=== PATIENT | male | born 1975 | race Caucasian/White ===

== ENCOUNTER 2020-06-13 16:12 | Emergency (ER) | payer OTHER, SELFPAY ==
[2020-06-13 16:15] VITALS: BP 159/103; PULSE 89; RESP 20; TEMP 36.9; O2SAT 97
--- NOTE | 2020-06-13 16:19 | DI.US.S_ITS ---
PROCEDURE: US SCROTUM INDICATIONS: rt testicular pain/tenderness TECHNIQUE: Real-time scanning was performed of the scrotum and testicles, with image documentation. Color and pulse Doppler interrogation was performed of both testicles. COMPARISON: None. FINDINGS: Right: Testicle is normal in size at 4.2 x 1.8 x 2.4 cm, and homogenous in echotexture. Epididymis is normal in overall size and morphology. No hydrocele or varicoceles. Overlying scrotal skin is normal in thickness. Left: Testicle is normal in size at 4.4 x 1.8 x 2.8 cm, and homogeneous in echotexture. Epididymis is normal in overall size and morphology. No hydrocele or varicoceles. Overlying scrotal skin is normal in thickness. Doppler: Color and pulse Doppler demonstrate normal and symmetric arterial flow in both testicles. IMPRESSION: Normal scrotal ultrasound. Dictated by: Angela Perkins M.D. on 06/13/2020 at 17:31 Approved by: Angela Perkins M.D. on 06/13/2020 at 17:32
== END 2020-06-13 18:52 | disposition left against medical advice (07) ==
PROVIDERS: Emergency Provider Emergency Medicine
DX: N50.811 Right testicular pain (principal)
CPT/HCPCS: 76870; 99283

== ENCOUNTER 2020-11-10 13:52 | Emergency (ER) | payer OTHER, SELFPAY ==
[2020-11-10 14:00] VITALS: BP 127/70; PULSE 64; RESP 15; TEMP 37.2; O2SAT 98; BMI 21.8
--- NOTE | 2020-11-10 14:02 | DI.RAD.S_ITS ---
PROCEDURE: XR FOOT LT MIN 3V INDICATIONS: Crush injury with pain TECHNIQUE: 3 views of the foot were acquired. COMPARISON: None. FINDINGS: Bones: No fractures or dislocations. No suspicious bony lesions. Nondisplaced fractures at the distal fifth and second distal metatarsals. Soft tissues: No tibiotalar joint effusion. Achilles tendon appears normal. IMPRESSION: Nondisplaced fractures at the distal fifth and second distal metatarsals. Dictated by: Carolyn Mcgill M.D. on 11/10/2020 at 14:49 Approved by: Carolyn Mcgill M.D. on 11/10/2020 at 14:53
--- NOTE | 2020-11-10 14:02 | DI.RAD.S_ITS ---
PROCEDURE: XR ANKLE LT MIN 3V INDICATIONS: Crush injury with pain TECHNIQUE: 3 views of the ankle were acquired. COMPARISON: None. FINDINGS: Bones: No fractures or dislocations. Ankle mortise is normally aligned. No suspicious bony lesions. Soft tissues: No tibiotalar joint effusion. Achilles tendon appears normal. IMPRESSION: No visualized acute fracture or dislocation. However, if clinical concern and/or pain persist, short interval imaging followup in 7-10 days is recommended, as occult injury cannot be definitively excluded. Dictated by: Carolyn Mcgill M.D. on 11/10/2020 at 14:47 Approved by: Carolyn Mcgill M.D. on 11/10/2020 at 14:49
--- NOTE | 2020-11-10 14:04 | ED.GENADULT ---
HPI - General Adult General Chief complaint: Extremity Injury, Lower Stated complaint: LEFT FOOT INJURY Time Seen by Provider: 11/10/20 13:57 Source: patient Mode of arrival: Wheelchair Limitations: no limitations History of Present Illness HPI narrative: Patient is a 44-year-old male here for evaluation of a left foot injury. He states that he was at work when a 40 ton piece of equipment rolled over his left foot. He states that his ?foot exploded? has bleeding around his sock. Spine and able to walk since then. Does not know when his last tetanus shot was. Modified trauma called for administrative purposes given the fact that this was a crush injury distal to the knee. Related Data Home Medications Medication Instructions Recorded Confirmed gemfibrozil 600 mg PO BID #0 12/18/12 Previous Rx's Medication Instructions Recorded cephalexin 500 mg PO QID 7 Days #28 cap 11/10/20 hydrocodone-acetaminophen 1 tab PO Q6H PRN #10 tab 11/10/20 Allergies Allergy/AdvReac Type Severity Reaction Status Date / Time morphine Allergy Verified 11/10/20 14:04 Review of Systems Constitutional Constitutional: Denies fever(s) Musculoskeletal Musculoskeletal: Denies tingling Comments: Left foot/ankle pain Integumentary/Breasts Comments: Cuts to his left foot Neurologic Neurologic: Denies tingling Hematologic/Lymphatic On Anticoagulants: No Allergic/Immunologic Allergic/Immunologic: Denies urticaria Patient History Medical History Skin disorder Social History Smoking Status: Current every day smoker Smoking Status: Current every day smoker alcohol intake frequency: 3 or more drinks per day Exam Initial Vital Signs Initial Vital Signs: Vital Signs Temperature 98.9 F 11/10/20 14:00 Pulse Rate 64 11/10/20 14:00 Respiratory Rate 15 11/10/20 14:00 Blood Pressure 127/70 11/10/20 14:00 Pulse Oximetry 98 11/10/20 14:00 Const Limitations: mental status not altered Skin Other: Patient has scaling on both of his feet and arms and hands which is not new. He states that he is seen by dermatology in the past and he does not have any specific diagnosis. Patient has multiple traumatic laceration as around his left foot Neuro Other: Sensation intact to light touch left foot Extrem Other: Patient has no left knee or proximal fibula or tibia tenderness. Has tenderness around his left ankle and also is left foot. Psych Appearance: disheveled Procedures Laceration Repair Laceration 1: Site: other (Foot) Side (If applicable): left Size (cm): 3 Description: linear Depth: simple, single layer Local Anesthetic: with bicarb Amount of anesthesia used (mL): 4 Pre-repair: irrigated extensively and deep structures intact Skin layer closed with: nylon Size (cm): 3-0 Number of sutures: 2 Technique: horizontal mattress Laceration 2: Site: other (Foot) Side (If applicable): left Size (cm): 3 Description: linear Depth: simple, single layer Local Anesthetic: lidocaine 1% and with bicarb Amount of anesthesia used (mL): 4 Pre-repair: wound explored and deep structures intact Skin layer closed with: nylon Size (cm): 3-0 Number of sutures: 2 Orthopedic Splinting/Casting Injury #1: Side: left Lower Extremity Injury Location: foot Lower Extremity Immobilizer: posterior splint Other Orthopedic Equipment: crutches Post splinting neuro exam: no change Post splinting vascular exam: no change Placed by: Nursing Course Orders Ordered: ED Orders 11/10/20 14:02 XR ankle LT min 3V Stat XR foot LT min 3V Stat 11/10/20 15:50 Consult to Orthopedic Surgery Stat Discontinued Medications Bacitracin (Bacitracin Oint 0.9 Gm Pckt) 3 applic TOP NOW ONE Stop: 11/10/20 14:23 Last Admin: 11/10/20 14:38 Dose: 3 applic Documented by: MANUELA Diphtheria/Tetanus/Acell Pertussis (Tet,Diph,Pertuss(Acell),Vac/Pf 0.5 Ml Syringe) 0.5 ml IM .ONCE ONE Stop: 11/10/20 14:03 Last Admin: 11/10/20 14:12 Dose: 0.5 ml Documented by: COLUMBA Hydromorphone HCl (Hydromorphone 1 Mg Inj) 1 mg IM NOW ONE Stop: 11/10/20 14:03 Last Admin: 11/10/20 14:14 Dose: 1 mg Documented by: COLUMBA Lidocaine/Sodium Bicarbonate (Lido 1%/Sod Bicarb 8.4% (10ml) 10 Ml Syringe) 10 ml INJ NOW ONE Stop: 11/10/20 14:23 Last Admin: 11/10/20 14:38 Dose: 10 ml Documented by: MANUELA Vital Signs Vital signs: Vital Signs - 8 hr 11/10/20 14:00 11/10/20 15:30 11/10/20 15:59 Temperature 98.9 F Pulse Rate 64 80 86 Respiratory Rate 15 12 Blood Pressure 127/70 133/83 Pulse Oximetry 98 98 99 11/10/20 16:00 11/10/20 16:01 11/10/20 16:30 Temperature Pulse Rate 86 90 88 Respiratory Rate Blood Pressure 128/76 Pulse Oximetry 98 98 99 Medical Decision Making Imaging Data Extremity x-ray #1: Radiologist's Impression: [address] [id number] ReportSigned Patient: Tonio Olivarez [facility]#: [id number]: 1975Acct:[id number]/Sex: 44 / MDate of Service: 11/10/20Loc: EDAccession Number: [id number] Procedure: XR ankle LT min 3V Ordering Provider: Adriel Maldonado D.O. PROCEDURE: XR ANKLE LT MIN 3V INDICATIONS: Crush injury with pain TECHNIQUE: 3 views of the ankle were acquired. COMPARISON: None. FINDINGS: Bones: No fractures or dislocations. Ankle mortise is normally aligned. No suspicious bony lesions. Soft tissues: No tibiotalar joint effusion. Achilles tendon appears normal. IMPRESSION: No visualized acute fracture or dislocation. However, if clinical concern and/or pain persist, short interval imaging followup in 7-10 days is recommended, as occult injury cannot be definitively excluded. Dictated by: Carolyn Mcgill M.D. on 11/10/2020 at 14:47 Approved by: Carolyn Mcgill M.D. on 11/10/2020 at 14:49 Extremity x-ray #2: Radiologist's Impression: [address] [id number] ReportSigned Patient: Tonio Olivarez [facility]#: [id number]: 1975Acct:[id number]/Sex: 44 / MDate of Service: 11/10/20Loc: EDAccession Number: [id number] Procedure: XR foot LT min 3V Ordering Provider: Adriel Maldonado D.O. PROCEDURE: XR FOOT LT MIN 3V INDICATIONS: Crush injury with pain TECHNIQUE: 3 views of the foot were acquired. COMPARISON: None. FINDINGS: Bones: No fractures or dislocations. No suspicious bony lesions. Nondisplaced fractures at the distal fifth and second distal metatarsals. Soft tissues: No tibiotalar joint effusion. Achilles tendon appears normal. IMPRESSION: Nondisplaced fractures at the distal fifth and second distal metatarsals. Dictated by: Carolyn Mcgill M.D. on 11/10/2020 at 14:49 Approved by: Carolyn Mcgill M.D. on 11/10/2020 at 14:53 MDM Narrative Medical decision making narrative: Patient did seem to have quite a bit of discomfort boarding on pain out of proportion. Given the nature of the crush injury there is concern for compartment syndrome. I did discuss the case with Dr. Jacobson with orthopedics who recommended doing compartment pressures. Patient's systolic blood pressure was 85 at the time. Patient's medial compartment pressure was 47, interosseous compartment pressures of 7, 16, 41, 28 going from medial to lateral. Patient's lateral compartment pressure 27, the sole of his foot was very soft and was nontender. None of the compartment pressures met criteria for compartment syndrome. The lacerations were closed as described above. It was difficult to close the wounds given the nature of the injury. I was able to close the distance somewhat with mattress stitches. A posterior splint was placed as described above. He was given care instructions and follow-up instructions and return precautions. Also start him on antibiotics. His tetanus was updated. He expressed understanding and agreement. Discharge Plan Departure Patient Disposition: Home Clinical Impression: Foot fracture, left, Laceration of skin, Abrasion of skin of left foot Instructions: How to Use Crutches, DI for Foot Fracture, How to Take Care of Your Splint Activity Restrictions/Additional Instructions: The splint that was placed today needs to stay on and needs to stay clean and stay dry. Do not walk on your left foot. The stitches that were placed today will need to be removed. I recommend that tomorrow you contact the [facility] group at [phone]. I did discuss her case with Dr. Jacobson. They will follow you up within the next week. Return to the emergency department for any new or worsening symptoms. Prescriptions: New cephalexin 500 mg capsule 500 mg PO QID 7 Days Qty: 28 RF: 0 hydrocodone-acetaminophen 5-325 mg tablet 1 tab PO Q6H PRN (Reason: pain) Qty: 10 RF: 0 No Action gemfibrozil 600 MG tablet 600 mg PO BID Qty: 0 RF: 0 Referrals: Jalyn Jacobson MD [Physician] - Stand Alone Forms: Work Release Note
--- NOTE | 2020-11-10 14:10 | PC.NURSE ---
Laceration to top of foot, and medial aspect of ankle. Patient has a rare unknown skin condition, skin at baseline extremely dry, cracked and flaking. Dusky color at baseline. Patient able to move toes, sensation intact. Tender to palpation of lower leg, no obvious deformity noted of lower leg.
[2020-11-10] MEDS: TET,DIPH,PERTUSS(ACELL),VAC/PF 0.5 ML SYRINGE IM (14:12)
[2020-11-10] MEDS: HYDROMORPHONE 1 MG INJ IM (14:14)
[2020-11-10] MEDS: BACITRACIN OINT 0.9 GM PCKT 3 APPLIC TOP (14:38)
[2020-11-10] MEDS: LIDO 1%/SOD BICARB 8.4% (10ML) 10 ML SYRINGE INJ (14:38)
[2020-11-10 15:30] VITALS: BP 133/83; PULSE 80; RESP 12; O2SAT 98
--- NOTE | 2020-11-10 15:35 | PC.NURSE ---
Patient numbed locally by provider to left foot. Tolerated provider checking compartment pressures in foot well.
[2020-11-10 15:59] VITALS: PULSE 86; O2SAT 99
[2020-11-10 16:00] VITALS: PULSE 86; O2SAT 98
[2020-11-10 16:01] VITALS: BP 128/76; PULSE 90; O2SAT 98
[2020-11-10 16:30] VITALS: PULSE 88; O2SAT 99
== END 2020-11-10 16:46 | disposition home or self-care (01) ==
PROVIDERS: Emergency Provider Emergency Medicine
DX: S91.312A Laceration without foreign body, left foot, initial encounter (principal); S92.902A Unspecified fracture of left foot, initial encounter for closed fracture; S90.812A Abrasion, left foot, initial encounter; W22.8XXA Striking against or struck by other objects, initial encounter; Y99.0 Civilian activity done for income or pay; Z23 Encounter for immunization
CPT/HCPCS: 12002; 29515; 73610; 73630; 90471; 96372; 99283; 99284; 90715; J1170

== ENCOUNTER 2020-11-12 14:17 | Emergency (ER) | payer OTHER, SELFPAY ==
[2020-11-12 14:20] VITALS: BP 132/94; PULSE 138; RESP 15; TEMP 37.2; O2SAT 98; BMI 21.8
[2020-11-12 14:23] VITALS: PULSE 135; O2SAT 98
--- NOTE | 2020-11-12 14:24 | ED_ITS ---
HPI - General Adult General Chief complaint: Extremity Injury, Lower Stated complaint: ankle broken,bruise where splint is,stitches broke Time Seen by Provider: 11/12/20 14:21 Source: patient Mode of arrival: Wheelchair Limitations: no limitations History of Present Illness HPI narrative: Patient is a 44-year-old male who I evaluated in the emergency department a couple days ago after sustaining a crush injury to his left foot. He did sustain 2 fractures to his foot. I did attempt to close to wounds on the dorsum of his foot however due to the swelling there was quite a bit of tension on the stitches. He was started on antibiotics. He was placed in a splint. He states that earlier today while he was at home was started to bleed through the splint. He did feel a pop on the stitches on the top of his foot. His removed the bandages at home and put new bandages over the area. He is also noticing some bruising up his leg is also having soreness at the bottom of his foot. He is still numb on his heel. Related Data Home Medications Medication Instructions Recorded Confirmed gemfibrozil 600 mg PO BID #0 12/18/12 Previous Rx's Medication Instructions Recorded cephalexin 500 mg PO QID 7 Days #28 cap 11/10/20 hydrocodone-acetaminophen 1 tab PO Q6H PRN #10 tab 11/10/20 Allergies Allergy/AdvReac Type Severity Reaction Status Date / Time morphine Allergy Verified 11/12/20 14:25 Review of Systems Constitutional Constitutional: Denies fever(s) Musculoskeletal Comments: Left ankle injury Integumentary/Breasts Comments: Bruising of his left leg, stitches came out of the top of his foot Neurologic Comments: Numbness to his left heel Hematologic/Lymphatic On Anticoagulants: No Patient History Medical History Skin disorder Social History Smoking Status: Current every day smoker Smoking Status: Current every day smoker alcohol intake frequency: 3 or more drinks per day Substance Use Type: marijuana Exam Initial Vital Signs Initial Vital Signs: Vital Signs Temperature 98.9 F 11/12/20 14:20 Pulse Rate 138 H 11/12/20 14:20 Respiratory Rate 15 11/12/20 14:20 Blood Pressure 132/94 H 11/12/20 14:20 Pulse Oximetry 98 11/12/20 14:20 Const General: cooperative Resp Effort & Inspection: normal respiratory effort Cardio Rate: tachycardic Skin Other: The 2 wounds on the dorsum of his left foot appear as expected. The 2 stitches on the dorsum of his foot do appear to have come out. There is only minor oozing. He also does have bruising up his left tibia and also on the bottom of his foot. Neuro Other: Reports decreased sensation to light touch of his left heel. Extrem Other: Some mild tenderness of his left calf. Tenderness around the wounds of his left foot Psych Appearance: grossly normal and well kempt Course Orders Ordered: ED Orders 11/12/20 14:37 XR tibia fibula LT 2V Stat Vital Signs Vital signs: Vital Signs - 8 hr 11/12/20 14:20 11/12/20 14:23 11/12/20 14:30 Temperature 98.9 F Pulse Rate 138 H 135 H 120 H Respiratory Rate 15 Blood Pressure 132/94 H 124/93 H Pulse Oximetry 98 98 99 11/12/20 14:48 11/12/20 15:04 Temperature Pulse Rate 100 H 107 H Respiratory Rate Blood Pressure 133/90 Pulse Oximetry 99 Medical Decision Making Imaging Data Extremity x-ray #1: Radiologist's Impression: [address] [id number] ReportSigned Patient: Tonio Olivarez [facility]#: [id number]: 1975Acct:[id number]/Sex: 44 / MDate of Service: 11/12/20Loc: EDAccession Number: [id number] Procedure: XR tibia fibula LT 2V Ordering Provider: Adriel Maldonado D.O. PROCEDURE: XR TIBIA FIBULA LT 2V INDICATIONS: Crush injury couple days ago with bruising up tibia TECHNIQUE: 2 views of the tibia and fibula were acquired. COMPARISON: None. FINDINGS: Bones: No fractures or dislocations. No suspicious bony lesions. Soft tissues: No suspicious soft tissue calcifications or masses. IMPRESSION: No acute finding. Dictated by: Sunil Brand M.D. on 11/12/2020 at 15:01 Approved by: Sunil Brand M.D. on 11/12/2020 at 15:01 MDM Narrative Medical decision making narrative: Patient continues to be neurovascularly intact except for the area on the heel of his foot where he states that he is numb. The lacerations/abrasions actually appear very well. The 2 stitches on the laceration on the dorsum of his foot did rupture. They were removed completely. Unfortunately we were unable to replace them given the nature of the injury and the length of time since the injury. He does have bruising going up his leg however the tib-fib x-ray shows no fractures. The rest of the bruising is expected for his injury. We did discuss how he can take care of the wounds and had a keep his foot elevated. He is going to contact the Orthopedic Department on Saturday for follow-up. He already has this information. He is currently on antibiotics. He is given return precautions. He expressed understanding and agreement. Discharge Plan Departure Patient Disposition: Home Clinical Impression: Foot fracture, left, Laceration of skin, Abrasion of skin of left foot Activity Restrictions/Additional Instructions: I do recommend that you contact the Orthopedic Department on Saturday for a follow-up. Their office phone numbers [phone]. Continues to take care of your left foot like we discussed. Do not walk on your left foot. Also contact your primary provider for follow-up. Return to the emergency department for any new or worsening symptoms Prescriptions: No Action gemfibrozil 600 MG tablet 600 mg PO BID Qty: 0 RF: 0 cephalexin 500 mg capsule 500 mg PO QID 7 Days Qty: 28 RF: 0 hydrocodone-acetaminophen 5-325 mg tablet 1 tab PO Q6H PRN (Reason: pain) Qty: 10 RF: 0
[2020-11-12 14:30] VITALS: BP 124/93; PULSE 120; O2SAT 99
--- NOTE | 2020-11-12 14:37 | DI.RAD.S_ITS ---
PROCEDURE: XR TIBIA FIBULA LT 2V INDICATIONS: Crush injury couple days ago with bruising up tibia TECHNIQUE: 2 views of the tibia and fibula were acquired. COMPARISON: None. FINDINGS: Bones: No fractures or dislocations. No suspicious bony lesions. Soft tissues: No suspicious soft tissue calcifications or masses. IMPRESSION: No acute finding. Dictated by: Sunil Brand M.D. on 11/12/2020 at 15:01 Approved by: Sunil Brand M.D. on 11/12/2020 at 15:01
[2020-11-12 14:48] VITALS: PULSE 100
[2020-11-12 15:04] VITALS: BP 133/90; PULSE 107; O2SAT 99
[2020-11-12 15:30] VITALS: BP 123/83; PULSE 112; O2SAT 98
== END 2020-11-12 16:03 | disposition home or self-care (01) ==
PROVIDERS: Emergency Provider Emergency Medicine
DX: S92.902G Unspecified fracture of left foot, subsequent encounter for fracture with delayed healing (principal); Z48.02 Encounter for removal of sutures; S90.812A Abrasion, left foot, initial encounter
CPT/HCPCS: 29515; 73590; 99283

== ENCOUNTER → 2020-12-28 09:16 | Outpatient (CLI) | payer OTHER, SELFPAY | PROVIDERS: Referring Provider Orthopaedic Surgery Foot and Ankle Surgery; Visit Provider Family Medicine | DX: L85.3 Xerosis cutis (principal); S90.32XA Contusion of left foot, initial encounter; R20.2 Paresthesia of skin | CPT/HCPCS: 97597; 99203; 99213 ==

== ENCOUNTER → 2021-01-06 14:05 | Outpatient (CLI) | payer OTHER, SELFPAY | PROVIDERS: Referring Provider Orthopaedic Surgery Foot and Ankle Surgery; Visit Provider Nurse Practitioner Family | DX: S90.32XA Contusion of left foot, initial encounter (principal); L08.9 Local infection of the skin and subcutaneous tissue, unspecified; L85.3 Xerosis cutis; R20.2 Paresthesia of skin; R60.0 Localized edema | CPT/HCPCS: 87070; 87075; 87205; 97597; 99213 ==

== ENCOUNTER → 2021-01-13 14:15 | Outpatient (CLI) | payer OTHER, SELFPAY | PROVIDERS: Referring Provider Emergency Medicine; Visit Provider Nurse Practitioner Family | DX: L85.3 Xerosis cutis (principal); S90.32XA Contusion of left foot, initial encounter; R20.2 Paresthesia of skin | CPT/HCPCS: 97597 ==

== ENCOUNTER → 2021-01-20 13:44 | Outpatient (CLI) | payer OTHER, SELFPAY | PROVIDERS: Referring Provider Orthopaedic Surgery Foot and Ankle Surgery; Visit Provider Nurse Practitioner Family | DX: S90.32XA Contusion of left foot, initial encounter (principal) | CPT/HCPCS: 97597 ==

== ENCOUNTER → 2021-01-27 15:10 | Outpatient (CLI) | payer OTHER, SELFPAY | PROVIDERS: Referring Provider Emergency Medicine; Visit Provider Nurse Practitioner Family | DX: S90.32XA Contusion of left foot, initial encounter (principal); S94.32XA Injury of cutaneous sensory nerve at ankle and foot level, left leg, initial encounter; M79.672 Pain in left foot | CPT/HCPCS: 97597; 99213 ==

== ENCOUNTER → 2021-02-03 14:21 | Outpatient (CLI) | payer OTHER, SELFPAY | PROVIDERS: Referring Provider Orthopaedic Surgery Foot and Ankle Surgery; Visit Provider Nurse Practitioner Family | DX: S90.32XA Contusion of left foot, initial encounter (principal); S94.32XA Injury of cutaneous sensory nerve at ankle and foot level, left leg, initial encounter | CPT/HCPCS: 97597 ==

== ENCOUNTER → 2021-02-10 13:41 | Outpatient (CLI) | payer OTHER, SELFPAY | PROVIDERS: Referring Provider Emergency Medicine; Visit Provider Nurse Practitioner Family | DX: S90.32XD Contusion of left foot, subsequent encounter (principal) | CPT/HCPCS: 99212 ==

== ENCOUNTER 2021-08-08 13:37 | Emergency (ER) | payer OTHER, SELFPAY ==
[2021-08-08] VITALS (11 sets, daily range): BP systolic 90–120; BP diastolic 52–71; PULSE 52–94; RESP 14–18; TEMP 36.3; O2SAT 96–100; BMI 19.8
--- NOTE | 2021-08-08 16:18 | DI.US.S_ITS ---
PROCEDURE: US PERIPH VENOUS LOW EXTREM RT INDICATIONS: swelling redness rt lower leg TECHNIQUE: Real-time imaging, as well as color and pulse Doppler interrogation, were performed of the lower extremity deep veins from the inguinal ligament to the popliteal fossa. COMPARISON: None. FINDINGS: The common femoral, femoral and popliteal veins are normally compressible, and free of intraluminal thrombus. Color and pulse Doppler demonstrate normal phasic intraluminal flow. There is normal augmentation response to distal compression maneuver. IMPRESSION: No evidence of deep venous thrombosis, right lower extremity Approved by: Heri Browne M.D. on 08/08/2021 at 17:05
[2021-08-08 17:42] LABS: Hemoglobin 9.7 g/dL (13.5-17.5); Monocytes Absolute Auto 1100 /uL (0-900); Neutrophils Absolute Auto 7400 /uL (1500-7000)
--- NOTE | 2021-08-08 17:45 | ED_ITS ---
HPI - Skin/Abscess/Foreign Bdy <IZABELLA Recinos-BC - Last Filed: 08/08/21 20:39> General Chief complaint: Skin/Abscess/Foreign Body Stated complaint: Thinks blood poisoning, red lines all over legs Time Seen by Provider: 08/08/21 16:14 Source: patient Mode of arrival: Ambulatory Limitations: no limitations History of Present Illness HPI narrative: The patient is a 45-year-old male current everyday smoker with history of a left foot fracture and a dermatologic condition not otherwise specified presents with a chief complaint of redness and wounds on his right lower leg. He states that they have been present for 11 days. He states that due to his skin condition, his legs are very dry and flaky. He denies any fevers vomiting or diarrhea that are new. He states that he has wounds on the front and back of his right lower leg that are draining. He has not followed up with primary care provider. He is concerned about blood in poisoning. The patient does note that he drinks alcohol every day, 3 or more drinks per day. Related Data Home Medications Medication Instructions Recorded Confirmed gemfibrozil 600 mg tablet 600 mg PO BID #0 12/18/12 Previous Rx's Medication Instructions Recorded hydrocodone 5 mg-acetaminophen 325 1 tab PO Q6H PRN #10 tab 11/10/20 mg tablet cephalexin 500 mg capsule 500 mg PO TID #30 cap 08/08/21 ondansetron 4 mg disintegrating 4 mg PO Q8H PRN #10 tab 08/08/21 tablet potassium chloride 20 mEq 20 meq PO DAILY #5 tab 08/08/21 tablet,extended release Allergies Allergy/AdvReac Type Severity Reaction Status Date / Time ibuprofen Allergy Verified 08/08/21 13:43 morphine Allergy Verified 08/08/21 13:42 Review of Systems <REMINGTON RecinosBC - Last Filed: 08/08/21 20:39> Review of Systems Narrative: GENERAL: Denies chills, fatigue, malaise, fever, sweats. HEENT: Denies sinus pain, ear pain, sore throat, difficulty swallowing, dizziness. RESPIRATORY: Denies dyspnea, cough, wheezing, hemoptysis, sputum. CARDIOVASCULAR: Denies chest pain, palpitations, orthopnea, edema, GASTROINTESTINAL: Denies nausea, vomiting, abdominal pain, diarrhea, constipation, melena. : Denies dysuria, frequency, incontinence, hematuria, urinary retention. MUSCULOSKELETAL: denies weakness, joint pain, or bony pain SKIN: See HPI NEUROLOGIC: Denies weakness, headache, numbness, change in speech, confusion, seizures, incoordination. PSYCHIATRIC: No concerning psychosocial issues. 12 point review of systems is negative except for those stated above Patient History <[facility] - Last Filed: 08/08/21 20:39> Medical History Skin disorder Social History Smoking Status: Current every day smoker Smoking Status: Current every day smoker alcohol intake frequency: 3 or more drinks per day Substance Use Type: marijuana Exam <[facility] - Last Filed: 08/08/21 20:39> Narrative Exam Narrative: GENERAL: This is a well-nourished, well-developed patient, in no acute distress HEAD: Atraumatic. Normocephalic. No temporal or scalp tenderness. EYES: Pupils equal round and reactive. Extraocular motions intact. No scleral icterus. No injection or drainage. ENT: Nose without bleeding, purulent drainage or septal hematoma. Throat without erythema, tonsillar hypertrophy or exudate. Uvula midline. Airway patent. NECK: Trachea midline. No JVD or lymphadenopathy. Supple, nontender, no meningeal signs. CARDIOVASCULAR: Regular rate and rhythm RESPIRATORY: Clear to auscultation. Breath sounds equal bilaterally. No wheezes, rales, or rhonchi. No cough. No increased respiratory effort. No accessory muscle use. GASTROINTESTINAL: Abdomen soft, non-tender, nondistended. No hepato- splenomegaly, or palpable masses. No guarding. No pain to palpation bilateral upper quadrants. EXTREMITIES: No clubbing, cyanosis, or edema. No joint tenderness, effusion, or edema noted. BACK: Nontender without deformity or crepitance. No flank tenderness. NEURO: AOx3. SKIN: Slight jaundice noted. 3 lesions on his right lower leg, serosanguineous drainage noted. Left-sided anterior padgett, 3 x 5 cm, right-sided anterior padgett, 4 x 3 cm, posterior right lower leg 6 x 3 cm. Skinis scaly, very cracked and noted to flake easily. No obvious extending erythema Initial Vital Signs Initial Vital Signs: Vital Signs Temperature 97.3 F L 08/08/21 13:43 Pulse Rate 94 H 08/08/21 13:43 Respiratory Rate 14 08/08/21 13:43 Blood Pressure 120/65 08/08/21 13:43 Pulse Oximetry 100 08/08/21 13:43 <Cristine Willoughby DO - Last Filed: 08/09/21 06:17> Initial Vital Signs Initial Vital Signs: Vital Signs Temperature 97.3 F L 08/08/21 13:43 Pulse Rate 94 H 08/08/21 13:43 Respiratory Rate 14 08/08/21 13:43 Blood Pressure 120/65 08/08/21 13:43 Pulse Oximetry 100 08/08/21 13:43 Scores <BRENTON Recinos - Last Filed: 08/08/21 20:39> GCS Nahed coma scale eye opening: Spontaneous Nahed coma scale verbal response: Orientated Vinton coma scale motor response: Obey commands Vinton coma scale total score: 15 qSOFA Altered Mental Status (GCS <15): No Respiratory rate greater than/equal to 22: No Systolic blood pressure less than or equal to 100: No qSOFA Total: 0 0-1 Not High Risk 1-3 High risk <Cristine Willoughby DO - Last Filed: 08/09/21 06:17> GCS Nahed coma scale total score: 15 qSOFA qSOFA Total: 0 Course <BRENTON Recinos - Last Filed: 08/08/21 20:39> Orders Ordered: ED Orders 08/08/21 22:29 CT abdomen pelvis w con Stat Discontinued Medications Diphenhydramine HCl (Diphenhydramine 50 Mg/Ml Vial) 25 mg IV NOW ONE Stop: 08/08/21 23:05 Last Admin: 08/08/21 23:09 Dose: 25 mg Documented by: CHEPE Sodium Chloride (Normal Saline 0.9%) 1,000 mls @ 1,000 mls/hr IV BOLUS ONE Stop: 08/08/21 19:00 Last Infusion: 08/08/21 20:23 Dose: 0 mls/hr Documented by: Admin: 08/08/21 19:18 Dose: 1,000 mls/hr Documented by: RADHA Sodium Chloride (Normal Saline 0.9%) 1,000 mls @ 1,000 mls/hr IV BOLUS ONE Stop: 08/08/21 19:00 Last Infusion: 08/08/21 21:36 Dose: 0 mls/hr Documented by: Admin: 08/08/21 20:22 Dose: 1,000 mls/hr Documented by: CHEPE POTASSIUM CHLORIDE IN WATER (Potassium Cl 10 Meq/100 Ml Louise) 10 meq in 100 mls @ 100 mls/hr IV Q1H RISSA Stop: 08/08/21 20:29 Last Infusion: 08/08/21 21:26 Dose: 0 mls/hr Documented by: Admin: 08/08/21 20:22 Dose: 100 mls/hr Documented by: Infusion: 08/08/21 20:21 Dose: 0 mls/hr Documented by: Admin: 08/08/21 19:17 Dose: 100 mls/hr Documented by: RADHA Ceftriaxone Sodium 1,000 mg/ (Sodium Chloride) 100 mls @ 200 mls/hr IV NOW ONE Stop: 08/08/21 20:27 Last Infusion: 08/08/21 21:26 Dose: 0 mls/hr Documented by: Admin: 08/08/21 20:39 Dose: 200 mls/hr Documented by: CHEPE Methylprednisolone (Methylprednisolone 125 Mg/2 Ml Vial) 125 mg IV NOW ONE Stop: 08/08/21 23:05 Last Admin: 08/08/21 23:09 Dose: 125 mg Documented by: CHEPE Ondansetron HCl (Ondansetron 4 Mg/2 Ml Inj) 4 mg IV NOW ONE Stop: 08/08/21 23:05 Last Admin: 08/08/21 23:09 Dose: 4 mg Documented by: CHEPE Potassium Chloride (Potassium Chloride 20 Meq Tab) 40 meq PO NOW ONE Stop: 08/08/21 18:30 Last Admin: 08/08/21 19:17 Dose: 40 meq Documented by: RADHA Vital Signs Vital signs: Vital Signs - 8 hr 08/08/21 22:30 08/08/21 23:09 08/08/21 23:30 Pulse Rate 52 L 89 63 Blood Pressure 93/61 104/60 Pulse Oximetry 96 96 98 <Cristine Botnick, DO - Last Filed: 08/09/21 06:17> Orders Ordered: ED Orders 08/08/21 22:29 CT abdomen pelvis w con Stat Discontinued Medications Diphenhydramine HCl (Diphenhydramine 50 Mg/Ml Vial) 25 mg IV NOW ONE Stop: 08/08/21 23:05 Last Admin: 08/08/21 23:09 Dose: 25 mg Documented by: CHEPE Sodium Chloride (Normal Saline 0.9%) 1,000 mls @ 1,000 mls/hr IV BOLUS ONE Stop: 08/08/21 19:00 Last Infusion: 08/08/21 20:23 Dose: 0 mls/hr Documented by: Admin: 08/08/21 19:18 Dose: 1,000 mls/hr Documented by: RADHA Sodium Chloride (Normal Saline 0.9%) 1,000 mls @ 1,000 mls/hr IV BOLUS ONE Stop: 08/08/21 19:00 Last Infusion: 08/08/21 21:36 Dose: 0 mls/hr Documented by: Admin: 08/08/21 20:22 Dose: 1,000 mls/hr Documented by: CHEPE POTASSIUM CHLORIDE IN WATER (Potassium Cl 10 Meq/100 Ml Louise) 10 meq in 100 mls @ 100 mls/hr IV Q1H RISSA Stop: 08/08/21 20:29 Last Infusion: 08/08/21 21:26 Dose: 0 mls/hr Documented by: Admin: 08/08/21 20:22 Dose: 100 mls/hr Documented by: Infusion: 08/08/21 20:21 Dose: 0 mls/hr Documented by: Admin: 08/08/21 19:17 Dose: 100 mls/hr Documented by: RADHA Ceftriaxone Sodium 1,000 mg/ (Sodium Chloride) 100 mls @ 200 mls/hr IV NOW ONE Stop: 08/08/21 20:27 Last Infusion: 08/08/21 21:26 Dose: 0 mls/hr Documented by: Admin: 08/08/21 20:39 Dose: 200 mls/hr Documented by: CHEPE Methylprednisolone (Methylprednisolone 125 Mg/2 Ml Vial) 125 mg IV NOW ONE Stop: 08/08/21 23:05 Last Admin: 08/08/21 23:09 Dose: 125 mg Documented by: CHEPE Ondansetron HCl (Ondansetron 4 Mg/2 Ml Inj) 4 mg IV NOW ONE Stop: 08/08/21 23:05 Last Admin: 08/08/21 23:09 Dose: 4 mg Documented by: CHEPE Potassium Chloride (Potassium Chloride 20 Meq Tab) 40 meq PO NOW ONE Stop: 08/08/21 18:30 Last Admin: 08/08/21 19:17 Dose: 40 meq Documented by: RADHA Vital Signs Vital signs: Vital Signs - 8 hr 08/08/21 22:30 08/08/21 23:09 08/08/21 23:30 Pulse Rate 52 L 89 63 Blood Pressure 93/61 104/60 Pulse Oximetry 96 96 98 MDM - Skin/Abscess/Foreign Bdy <IZABELLA Recinos-BC - Last Filed: 08/08/21 20:39> Lab Data Result diagrams: 08/08/21 17:32 08/08/21 17:32 Labs: Lab Results 08/08/21 08/08/21 08/08/21 Range/Units 17:32 17:32 17:32 WBC 10.8 (4.5-11.0) X10^3/uL RBC 3.12 L (4.5-5.9) X10^6/uL Hgb 9.7 L (13.5-17.5) g/dL Hct 28.4 L (41-53) % MCV 90.9 (80-100) fL MCH 31.2 (26-34) PG MCHC 34.3 (30-36) % RDW 19.6 H (11.6-14.8) % Plt Count 187 (150-400) X10^3/uL Neut % (Auto) 68.5 (50-75) % Lymph % (Auto) 20.0 L (25-40) % Davis % (Auto) 10.6 (3-14) % Eos % (Auto) 0.6 L (2-4) % Baso % (Auto) 0.3 (0-2) % Neut # (Auto) 7400 H (8009-0293) /uL Lymph # (Auto) 2200 (9580-1511) /uL Davis # (Auto) 1100 H (0-900) /uL Eos # (Auto) 100 (0-450) /uL Baso # (Auto) 0 (0-100) /uL Sodium 135 L (137-145) mmol/L Potassium 2.6 L* (3.4-5.1) mmol/L Chloride 96 L (98-107) mmol/L Carbon Dioxide 31 (22-32) mmol/L BUN < 2 L (9-20) mg/dL Creatinine 0.44 L (0.66-1.25) mg/dL Estimated GFR > 60.0 (>60) mL/min BUN/Creatinine Ratio 4.5 L (6-22) Glucose 157 H (70-100) mg/dL Lactate 3.1 H (0.7-2.1) mmol/L Calcium 8.1 L (8.4-10.2) mg/dL Total Bilirubin 4.5 H (0.2-1.3) mg/dL AST 165 H (17-59) IU/L ALT 32 (<50) IU/L Alkaline Phosphatase 451 H (38-126) U/L Total Protein 6.2 L (6.3-8.2) g/dL Albumin 2.9 L (3.5-5.0) g/dL Globulin 3.3 (1.7-4.1) g/dL Albumin/Globulin Ratio 0.9 L (1.0-2.8) Procalcitonin 0.15 (<0.5) ng/mL Acetaminophen (10-30) ug/mL Ethyl Alcohol ( - 10) mg/dL 08/08/21 08/08/21 Range/Units 17:32 21:47 WBC (4.5-11.0) X10^3/uL RBC (4.5-5.9) X10^6/uL Hgb (13.5-17.5) g/dL Hct (41-53) % MCV (80-100) fL MCH (26-34) PG MCHC (30-36) % RDW (11.6-14.8) % Plt Count (150-400) X10^3/uL Neut % (Auto) (50-75) % Lymph % (Auto) (25-40) % Davis % (Auto) (3-14) % Eos % (Auto) (2-4) % Baso % (Auto) (0-2) % Neut # (Auto) (8713-1621) /uL Lymph # (Auto) (0968-8224) /uL Davis # (Auto) (0-900) /uL Eos # (Auto) (0-450) /uL Baso # (Auto) (0-100) /uL Sodium (137-145) mmol/L Potassium (3.4-5.1) mmol/L Chloride (98-107) mmol/L Carbon Dioxide (22-32) mmol/L BUN (9-20) mg/dL Creatinine (0.66-1.25) mg/dL Estimated GFR (>60) mL/min BUN/Creatinine Ratio (6-22) Glucose (70-100) mg/dL Lactate 1.7 (0.7-2.1) mmol/L Calcium (8.4-10.2) mg/dL Total Bilirubin (0.2-1.3) mg/dL AST (17-59) IU/L ALT (<50) IU/L Alkaline Phosphatase (38-126) U/L Total Protein (6.3-8.2) g/dL Albumin (3.5-5.0) g/dL Globulin (1.7-4.1) g/dL Albumin/Globulin Ratio (1.0-2.8) Procalcitonin (<0.5) ng/mL Acetaminophen < 10 L (10-30) ug/mL Ethyl Alcohol 121 H ( - 10) mg/dL Imaging Data US - DVT: Radiologist's Impression: [address] [place] [address] Ultrasound Report Signed Patient: Tonio Olivarez MR#: [id number] : 1975 Acct:[id number] Age/Sex: 45 / M Date of Service: 08/08/21 Loc: ED Accession Number: [id number] ?? Procedure: US periph venous low extrem rt Ordering Provider: Radha Chung- PROCEDURE:? US PERIPH VENOUS LOW EXTREM RT ? INDICATIONS:? swelling redness rt lower leg ? TECHNIQUE:? Real-time imaging, as well as color and pulse Doppler interrogation, were performed of the lower extremity deep veins from the inguinal ligament to the popliteal fossa.? ? COMPARISON:? None. ? FINDINGS:? The common femoral, femoral and popliteal veins are normally compressible, and free of intraluminal thrombus.? Color and pulse Doppler demonstrate normal phasic intraluminal flow.? There is normal augmentation response to distal compression maneuver. ? ? IMPRESSION:? No evidence of deep venous thrombosis, right lower extremity ? ? ? Approved by: Heri Browne M.D. on 08/08/2021 at 17:05? MDM Narrative Medical decision making narrative: The patient is a 45-year-old male who presents with a chief complaint of infection in his right lower leg. He does have some swelling and diffuse erythema, is noted to have multiple sores. However is neurovascularly intact. Given his complaint of 11 days of expect worsening erythema, basic labs were done. He has no leukocytosis, however his lactate is elevated at 3.1. He is noted to have elevated LFTs and bilirubin as well and an elevated alcohol level. He does admit to daily drinking, so acetaminophen, hepatitis panel is added. His drinking could also contribute to his lactate, as he has no leukocytosis, his procalcitonin is less than 0.5. He is noted to have a K of 2.6, so he was given 40 meq p.o. and 20 meq IV. Given his elevated bilirubin and LFTs, abdominal ultrasound was obtained. I discussed at length with the patient that his lab changes might be related to his drinking. I discussed at length that he needs to get a primary care provider. He is to be given a g of ceftriaxone in the emergency department for the lower leg cellulitis. His abdominal ultrasound is pending, he will get a repeat lactate drawn after his 2 L of IVF. The patient has been hemodynamically stable nontoxic appearing throughout his stay in the ER. Patient signed out to Dr. Willoughby with ultrasound, 2 L and repeat lactate pending. Plan is to discharge if able. <Cristine Willoughby, DO - Last Filed: 08/09/21 06:17> Lab Data Labs: Lab Results 08/08/21 08/08/21 08/08/21 Range/Units 17:32 17:32 17:32 WBC 10.8 (4.5-11.0) X10^3/uL RBC 3.12 L (4.5-5.9) X10^6/uL Hgb 9.7 L (13.5-17.5) g/dL Hct 28.4 L (41-53) % MCV 90.9 (80-100) fL MCH 31.2 (26-34) PG MCHC 34.3 (30-36) % RDW 19.6 H (11.6-14.8) % Plt Count 187 (150-400) X10^3/uL Neut % (Auto) 68.5 (50-75) % Lymph % (Auto) 20.0 L (25-40) % Davis % (Auto) 10.6 (3-14) % Eos % (Auto) 0.6 L (2-4) % Baso % (Auto) 0.3 (0-2) % Neut # (Auto) 7400 H (6790-1234) /uL Lymph # (Auto) 2200 (5606-9801) /uL Davis # (Auto) 1100 H (0-900) /uL Eos # (Auto) 100 (0-450) /uL Baso # (Auto) 0 (0-100) /uL Sodium 135 L (137-145) mmol/L Potassium 2.6 L* (3.4-5.1) mmol/L Chloride 96 L (98-107) mmol/L Carbon Dioxide 31 (22-32) mmol/L BUN < 2 L (9-20) mg/dL Creatinine 0.44 L (0.66-1.25) mg/dL Estimated GFR > 60.0 (>60) mL/min BUN/Creatinine Ratio 4.5 L (6-22) Glucose 157 H (70-100) mg/dL Lactate 3.1 H (0.7-2.1) mmol/L Calcium 8.1 L (8.4-10.2) mg/dL Total Bilirubin 4.5 H (0.2-1.3) mg/dL AST 165 H (17-59) IU/L ALT 32 (<50) IU/L Alkaline Phosphatase 451 H (38-126) U/L Total Protein 6.2 L (6.3-8.2) g/dL Albumin 2.9 L (3.5-5.0) g/dL Globulin 3.3 (1.7-4.1) g/dL Albumin/Globulin Ratio 0.9 L (1.0-2.8) Procalcitonin 0.15 (<0.5) ng/mL Acetaminophen (10-30) ug/mL Ethyl Alcohol ( - 10) mg/dL 08/08/21 08/08/21 Range/Units 17:32 21:47 WBC (4.5-11.0) X10^3/uL RBC (4.5-5.9) X10^6/uL Hgb (13.5-17.5) g/dL Hct (41-53) % MCV (80-100) fL MCH (26-34) PG MCHC (30-36) % RDW (11.6-14.8) % Plt Count (150-400) X10^3/uL Neut % (Auto) (50-75) % Lymph % (Auto) (25-40) % Davis % (Auto) (3-14) % Eos % (Auto) (2-4) % Baso % (Auto) (0-2) % Neut # (Auto) (0140-6190) /uL Lymph # (Auto) (2722-6754) /uL Davis # (Auto) (0-900) /uL Eos # (Auto) (0-450) /uL Baso # (Auto) (0-100) /uL Sodium (137-145) mmol/L Potassium (3.4-5.1) mmol/L Chloride (98-107) mmol/L Carbon Dioxide (22-32) mmol/L BUN (9-20) mg/dL Creatinine (0.66-1.25) mg/dL Estimated GFR (>60) mL/min BUN/Creatinine Ratio (6-22) Glucose (70-100) mg/dL Lactate 1.7 (0.7-2.1) mmol/L Calcium (8.4-10.2) mg/dL Total Bilirubin (0.2-1.3) mg/dL AST (17-59) IU/L ALT (<50) IU/L Alkaline Phosphatase (38-126) U/L Total Protein (6.3-8.2) g/dL Albumin (3.5-5.0) g/dL Globulin (1.7-4.1) g/dL Albumin/Globulin Ratio (1.0-2.8) Procalcitonin (<0.5) ng/mL Acetaminophen < 10 L (10-30) ug/mL Ethyl Alcohol 121 H ( - 10) mg/dL Imaging Data US - abdomen: Radiologist's Impression: PROCEDURE: US ABDOMEN LIMITED ? INDICATIONS:? ELEVATED BILIRUBIN ? TECHNIQUE:? Real-time focused scanning was performed of the abdomen, with image documentation.? ? COMPARISON:? CT, ABDOMEN/PELVIS WITH CONTRAST, 10/06/2007, 20:42. ? FINDINGS:? Liver is normal in size and demonstrates increased echotexture.? The re is a irregular hypoechoic structure in liver measuring 7.0 x 7.0 x 16.0 cm.? Portal vein is patent and demonstrates hepatopetal flow.? ? No gallstones. No gallbladder wall thickening, pericholecystic fluid or sonographic Camacho's sign. ? Common bile duct is normal in caliber measuring 3.5 cm. ? Pancreas is not visualized.? ? IMPRESSION:? ? 1. A large irregular hypoechoic structure within the liver measuring 7.0 x 7.0 x 16.0 cm. ?Sonographic appearance is suspicious for a mass such as cholangiocarcinoma.? Alternatively, this could represent focal fat.? Recommend CT with contrast for further evaluation. ? 2. Normal gallbladder. ? 3. Pancreas is obscured by overlying bowel gas.? ? ? Dictated by: Eileen Reese M.D. on 08/08/2021 at 20:46 ? ? CT scan - abdomen/pelvis: Radiologist's Impression: PROCEDURE:? CT ABDOMEN PELVIS W CON ? INDICATIONS:? possible liver mass ? TECHNIQUE:? After the administration of oral and IV contrast, axial sections were acquired from the lung bases to the pubic symphysis.? Coronal and sagittal reformats were performed.? For radiation dose reduction, the following was used:? automated exposure control, adjustment of mA and/or kV according to patient size. ? COMPARISON:? [facility], US, US ABDOMEN LIMITED, 08/08/2021, 19:26.? [facility], CT, ABDOMEN/PELVIS WITH CONTRAST, 10/06/2007, 20:42. ? FINDINGS:? Image quality:? Excellent.? ? Lung bases:? Mild bibasilar gravitational changes. Heart:? No significant findings. ? ? ABDOMEN: Liver:? The liver is diffusely enlarged measuring 24.3 cm in length.? Prominent geographic hypodensity throughout the posterior right hepatic lobe, roughly segments and VII, and heterogeneous hypodensity in the anterior liver, and focally in the caudate lobe. Gallbladder:? The gallbladder is distended and demonstrates slight wall thickening and fluid.? No tanisha pericholecystic inflammation. Biliary ducts:? Nondilated. Pancreas:? Within normal limits. Spleen:? Normal size.? The splenic vein is patent. Adrenal Glands:? No nodules. Kidneys and Ureters:? Normal enhancement.? No hydronephrosis or hydroureter.? No urolithiasis. ? Stomach and Bowel:? The colon is fairly decompressed and demonstrates diffuse pancolonic wall thickening and wall edema.? Small amount of stool is present in the rectum.? Small bowel loops are mildly prominent.? A normal appendix is seen. Peritoneum:? There is free fluid in all four quadrants of the abdomen including over the liver.? No free intraperitoneal air. ? Ventral Wall: ? No hernia.? Abdominal Nodes:? No retroperitoneal or mesenteric adenopathy by size criteria.? Vessels:? Aorta and inferior vena cava are normal in size.? ? PELVIS: Pelvic Organs:? Normal prostate and seminal vesicles. Bladder:? Normal urinary bladder wall thickness. Pelvic Nodes: No enlarged lymph nodes.? Miscellaneous: No inguinal hernias are seen. ? ? ? Bones:? Unremarkable.? IMPRESSION:? 1. Enlarged liver with heterogeneous attenuation and surrounding fluid.? Findings are suspicious for hepatitis or hepatic failure, with etiologies including infectious, inflammatory, or toxic/metabolic including alcoholic.? Hepatic steatosis and chronic liver disease may have this appearance as well and correlation with acuity is recommended. 2. There is generalized colitis which is nonspecific and may be infectious, inflammatory, or reactive. 3. Etiology of ascites in the abdomen is uncertain.? 4. Gallbladder wall thickening nonspecific in the setting liver disease.? ? Dictated by: Angela Perkins M.D. on 08/08/2021 at 23:09? [facility] Narrative Medical decision making narrative: The patient is a 45-year-old male who presents with a chief complaint of inf ection in his right lower leg. He does have some swelling and diffuse erythema, is noted to have multiple sores. However is neurovascularly intact. Given his complaint of 11 days of expect worsening erythema, basic labs were done. He has no leukocytosis, however his lactate is elevated at 3.1. He is noted to have elevated LFTs and bilirubin as well and an elevated alcohol level. He does admi t to daily drinking, so acetaminophen, hepatitis panel is added. His drinking could also contribute to his lactate, as he has no leukocytosis, his procalcitonin is less than 0.5. He is noted to have a K of 2.6, so he was given 40 meq p.o. and 20 meq IV. Given his elevated bilirubin and LFTs, abdominal ultrasound was obtained. I discussed at length with the patient that his lab changes might be related to his drinking. I discussed at length that he needs to get a primary care provider. He is to be given a g of ceftriaxone in the emergency department for the lower leg cellulitis. His abdominal ultrasound is pending, he will get a repeat lactate drawn after his 2 L of IVF. The patient has been hemodynamically stable nontoxic appearing throughout his stay in the ER. Patient signed out to Dr. Willoughby with ultrasound, 2 L and repeat lactate pending. Plan is to discharge if able. I received sign-out from Radha DIOR, I have seen evaluated patient myself a repeat lactate has decreased. Patient overall appears well. He has some mild sores on his right leg no gross discharge. Agree with outpatient antibiotics. Ultrasound does show spot possible for cholangiocarcinoma. CT does not show any mass but does show signs suspicious for hepatitis or hepatic failure. I have discussed with him decreasing his alcohol intake in foreign him not to stop abruptly due to alcohol withdrawal and seizures. I have discussed with he and his detox centers. At this time patient does not meet admission criteria his potassium has been replaced. Discharge Plan Departure Patient Disposition: Home Clinical Impression: Cellulitis, Elevated LFTs, Elevated bilirubin, Jaundice, Hypokalemia Instructions: DI for Cellulitis -- Adult, DI for Alcohol Use Disorder, DI for Hypokalemia, Liver Function Tests Activity Restrictions/Additional Instructions: Thank you for trusting us with your care today. As discussed, I am very concerned about your alcohol consumption. I worry that this is injuring your liver, you are showing signs of liver failure. Please follow-up with primary care provider. You can contact [phone] and they will help set you up with primary care provider. I sent a prescription of an antibiotic to [facility]. Please take this with probiotic or yogurt to help prevent antibiotic related diarrhea. I also sent a prescription of potassium since her potassium was dangerously low in the emergency department. Please take this once a day for 5 days. Please come back to the emergency department for any acute concerns such as inability keep down fluids. -Zofran 4 mg every 8 hours needed for nausea or vomiting Please decrease your alcohol consumption slightly if he stops abruptly as it can cause seizures and potentially . You may need a detox center to help with stopping Please avoid Tylenol/acetaminophen at this is processed through the liver Prescriptions: New cephalexin 500 mg capsule 500 mg PO TID Qty: 30 0RF potassium chloride 20 mEq tablet extended release 20 meq PO DAILY Qty: 5 0RF ondansetron 4 mg tablet,disintegrating 4 mg PO Q8H PRN (Reason: nausea and vomiting) Qty: 10 0RF No Action gemfibrozil 600 MG tablet 600 mg PO BID Qty: 0 0RF hydrocodone-acetaminophen 5-325 mg tablet 1 tab PO Q6H PRN (Reason: pain) Qty: 10 0RF Referrals: [facility] [Outside] [facility] [Outside] [facility] [Outside] [facility] [Outside] <Cristine Willoughby, - Last Filed: 08/09/21 06:17> Cosign ED Attending Phillature Attestation: I was immediately available in the department for consultation. Documentation has been reviewed. I agree with assessment and plan.
[2021-08-08 17:52] LABS: Lactate (Lactic Acid) 3.1 mmol/L (0.7-2.1)
[2021-08-08 17:54] LABS: Alanine Aminotransferase 32 IU/L (<50); Albumin 2.9 g/dL (3.5-5.0); Albumin Globulin Ratio 0.9 (1.0-2.8); Alkaline Phosphatase 451 U/L (38-126); Aspartate Aminotransferase 165 IU/L (17-59); Bilirubin Total 4.5 mg/dL (0.2-1.3); Calcium 8.1 mg/dL (8.4-10.2); Carbon Dioxide 31 mmol/L (22-32); Chloride 96 mmol/L (98-107); Estimated Glomerular Filt Rate > 60.0 mL/min (>60); Globulin 3.3 g/dL (1.7-4.1); Glucose 157 mg/dL (70-100); HEMOLYSIS < 15 (0-50); Sodium 135 mmol/L (137-145); Total Protein 6.2 g/dL (6.3-8.2)
[2021-08-08 17:58] LABS: Add Manual Diff / Slide Review NO; Basophils Absolute Auto 0 /uL (0-100); Basophils Percent Auto 0.3 % (0-2); Eosinophils Absolute Auto 100 /uL (0-450); Eosinophils Percent Auto 0.6 % (2-4); Hematocrit 28.4 % (41-53); Lymphocytes Absolute Auto 2200 /uL (1100-4500); Mean Corpuscular HGB Conc 34.3 % (30-36); Mean Corpuscular Hemoglobin 31.2 PG (26-34); Mean Corpuscular Volume 90.9 fL (80-100); Monocytes Percent Auto 10.6 % (3-14); Neutrophils Percent Auto 68.5 % (50-75); Platelet Count 187 X10^3/uL (150-400); Red Blood Cell Count 3.12 X10^6/uL (4.5-5.9); Red Cell Distribution Width 19.6 % (11.6-14.8); White Blood Cell Count 10.8 X10^3/uL (4.5-11.0)
[2021-08-08 18:03] LABS: BUN Creatinine Ratio 4.5 (6-22)
[2021-08-08 18:09] LABS: Procalcitonin 0.15 ng/mL (<0.5)
[2021-08-08 18:11] LABS: Potassium 2.6 mmol/L (3.4-5.1)
[2021-08-08 18:12] LABS: Blood Urea Nitrogen < 2 mg/dL (9-20)
--- NOTE | 2021-08-08 19:00 | DI.US.S_ITS ---
PROCEDURE: US ABDOMEN LIMITED INDICATIONS: ELEVATED BILIRUBIN TECHNIQUE: Real-time focused scanning was performed of the abdomen, with image documentation. COMPARISON: CT, ABDOMEN/PELVIS WITH CONTRAST, 10/06/2007, 20:42. FINDINGS: Liver is normal in size and demonstrates increased echotexture. There is a irregular hypoechoic structure in liver measuring 7.0 x 7.0 x 16.0 cm. Portal vein is patent and demonstrates hepatopetal flow. No gallstones. No gallbladder wall thickening, pericholecystic fluid or sonographic Camacho's sign. Common bile duct is normal in caliber measuring 3.5 cm. Pancreas is not visualized. IMPRESSION: 1. A large irregular hypoechoic structure within the liver measuring 7.0 x 7.0 x 16.0 cm. Sonographic appearance is suspicious for a mass such as cholangiocarcinoma. Alternatively, this could represent focal fat. Recommend CT with contrast for further evaluation. 2. Normal gallbladder. 3. Pancreas is obscured by overlying bowel gas. Dictated by: Eileen Reese M.D. on 08/08/2021 at 20:46 Approved by: Eileen Reese M.D. on 08/08/2021 at 20:49
[2021-08-08 19:04] LABS: Acetaminophen < 10 ug/mL (10-30); Ethanol (ETOH) 121 mg/dL
[2021-08-08] MEDS: POTASSIUM CHLORIDE 20 MEQ TAB 40 MEQ PO (19:17)
[2021-08-08] MEDS: POTASSIUM CHLORIDE IN WATER 10 MEQ/100 ML PIGGYBACK 100 MEQ IV ×2 (19:17→20:22)
[2021-08-08] MEDS: SODIUM CHLORIDE 0.9% 1,000 ML 1000 ML IV ×2 (19:18→20:22)
--- NOTE | 2021-08-08 19:30 | PC.NURSE ---
Pt states he is an alcoholic and is concerned he will be in withdrawal if he stays in the ED too long. Provider aware of pt's daily alcohol consumption, roughly 4 high gravity, 8.1 to 13.9% alcohol daily.
[2021-08-08 19:37] LABS: Reflexed Lactate in 2 Hours Y
[2021-08-08] MEDS: cefTRIAXone 1,000 MG in SODIUM CHLORIDE 0.9% 100 ML 200 ML IV (20:39)
[2021-08-08 22:17] LABS: Lactate 2HR (Lactic Acid Rflx) 1.7 mmol/L (0.7-2.1)
--- NOTE | 2021-08-08 22:29 | DI.CT.S_ITS ---
PROCEDURE: CT ABDOMEN PELVIS W CON INDICATIONS: possible liver mass TECHNIQUE: After the administration of oral and IV contrast, axial sections were acquired from the lung bases to the pubic symphysis. Coronal and sagittal reformats were performed. For radiation dose reduction, the following was used: automated exposure control, adjustment of mA and/or kV according to patient size. COMPARISON: [facility], US, US ABDOMEN LIMITED, 08/08/2021, 19:26. [facility], CT, ABDOMEN/PELVIS WITH CONTRAST, 10/06/2007, 20:42. FINDINGS: Image quality: Excellent. Lung bases: Mild bibasilar gravitational changes. Heart: No significant findings. ABDOMEN: Liver: The liver is diffusely enlarged measuring 24.3 cm in length. Prominent geographic hypodensity throughout the posterior right hepatic lobe, roughly segments and VII, and heterogeneous hypodensity in the anterior liver, and focally in the caudate lobe. Gallbladder: The gallbladder is distended and demonstrates slight wall thickening and fluid. No tanisha pericholecystic inflammation. Biliary ducts: Nondilated. Pancreas: Within normal limits. Spleen: Normal size. The splenic vein is patent. Adrenal Glands: No nodules. Kidneys and Ureters: Normal enhancement. No hydronephrosis or hydroureter. No urolithiasis. Stomach and Bowel: The colon is fairly decompressed and demonstrates diffuse pancolonic wall thickening and wall edema. Small amount of stool is present in the rectum. Small bowel loops are mildly prominent. A normal appendix is seen. Peritoneum: There is free fluid in all four quadrants of the abdomen including over the liver. No free intraperitoneal air. Ventral Wall: No hernia. Abdominal Nodes: No retroperitoneal or mesenteric adenopathy by size criteria. Vessels: Aorta and inferior vena cava are normal in size. PELVIS: Pelvic Organs: Normal prostate and seminal vesicles. Bladder: Normal urinary bladder wall thickness. Pelvic Nodes: No enlarged lymph nodes. Miscellaneous: No inguinal hernias are seen. Bones: Unremarkable. IMPRESSION: 1. Enlarged liver with heterogeneous attenuation and surrounding fluid. Findings are suspicious for hepatitis or hepatic failure, with etiologies including infectious, inflammatory, or toxic/metabolic including alcoholic. Hepatic steatosis and chronic liver disease may have this appearance as well and correlation with acuity is recommended. 2. There is generalized colitis which is nonspecific and may be infectious, inflammatory, or reactive. 3. Etiology of ascites in the abdomen is uncertain. 4. Gallbladder wall thickening nonspecific in the setting liver disease. Dictated by: Angela Perkins M.D. on 08/08/2021 at 23:09 Approved by: Angela Perkins M.D. on 08/08/2021 at 23:22
[2021-08-08] MEDS: ONDANSETRON 4 MG/2 ML INJ IV (23:09)
[2021-08-08] MEDS: methylPREDNISolone 125 MG/2 ML VIAL IV (23:09)
[2021-08-08] MEDS: diphenhydrAMINE 50 MG/ML VIAL 25 MG IV (23:09)
--- NOTE | 2021-08-08 23:14 | PC.NURSE ---
PT got nauseated and threw up immediately after receiving IV contrast. Provider aware and medicated per new orders.
[2021-08-10 12:06] LABS: HBsAg Screen Negative (Negative); Hepatitis A Antibody IgM Negative (Negative); Hepatitis B Core Antibody IgM Negative (Negative); Hepatitis C Antibody <0.1 s/co ratio (0.0-0.9)
== END 2021-08-09 00:04 | disposition home or self-care (01) ==
PROVIDERS: Nurse Practitioner Family; Emergency Provider Emergency Medicine
DX: L03.115 Cellulitis of right lower limb (principal); R74.01 Elevation of levels of liver transaminase levels; R17 Unspecified jaundice; E87.6 Hypokalemia
CPT/HCPCS: 36415; 74177; 76705; 80053; 80074; 80320; 80329; 83605; 84145; 85025; 87040; 87070; 87075; 87077; 87147; 87205; 93971; 96365; 96367; 96368; 96375; 99284; G0480; J0696; J1200; J2405; J2930; Q9967

== ENCOUNTER → 2021-09-19 15:41 | Outpatient (CLI) | payer OTHER, SELFPAY ==
--- NOTE | 2021-09-19 | DI.CT.S_ITS ---
PROCEDURE: CT LE LT W CON INDICATIONS: Pathological fracture, left foot TECHNIQUE: Noncontrast 1-1.5 mm axial sections acquired from above the tibiotalar joint to the bottom of the calcaneus, with coronal and sagittal reformats. COMPARISON: [facility], CR, XR FOOT LT MIN 3V, 11/10/2020, 14:05. [facility], CR, XR FOOT 3+ VIEWS LEFT, 12/21/2020, 12:09. [facility], CR, XR FOOT 1 OR 2 VIEWS WEIGHT BEARING BILATERAL, 02/08/2021, 11:00. [facility], CR, XR ANKLE 3 VIEWS WEIGHT BEARING LEFT, 02/08/2021, 11:05. [facility], CR, XR FOOT 3 VIEWS WEIGHT BEARING LEFT, 04/26/2021, 9:24. FINDINGS: Image quality: Excellent. Bones: Diffuse osteopenia is noted throughout left ankle and foot. There is suggestion of healing or healed fracture involving 5th metatarsal neck and 5th proximal phalangeal shaft with chronic appearing deformity. Healed fracture involving 2nd metatarsal neck is also seen. Fragmented appearance of medial and lateral sesamoids of 1st metatarsal head is noted with fairly well corticated margin suggestive of old healed injury. Old fracture involving plantar and lateral portion of distal lateral cuneiform is seen with fairly well corticated margin and up to 2 mm diastasis at fracture site series 6, image 48 suggestive of nonunion at fracture site. No gross acute fracture or dislocation is seen. Osteoarthritic changes are noted throughout left foot and ankle. No gross abnormal intraosseous enhancement is seen. Soft tissues: There is soft tissue swelling surrounding left ankle and foot. No gross enhancing soft tissue mass or drainable fluid collection is seen. No full-thickness tendon rupture. Plantar fascia is grossly intact. Achilles tendon is intact. IMPRESSION: 1. Moderate to severe osteopenia throughout left ankle and foot. No definite intraosseous lesion is identified. 2. Subacute to old healed fractures involving 2nd and 5th metatarsal necks, 5th proximal phalangeal shaft and plantar and lateral portion of distal lateral cuneiform. There is suggestion of nonunion at lateral cuneiform fracture site. No acute fracture or dislocation. 3. Fragmented appearance of sesamoid bones of the 1st metatarsal head suggestive of old injury. 4. Osteoarthritic changes throughout left ankle and foot. Mild ankle and foot soft tissue swelling. No enhancing soft tissue mass or drainable fluid collection. Dictated by: French Gastelum M.D. on 09/19/2021 at 16:40 Approved by: French Gastelum M.D. on 09/19/2021 at 17:06
== END ==
PROVIDERS: Referring Provider Specialist; Visit Provider Specialist
DX: M84.475A Pathological fracture, left foot, initial encounter for fracture (principal)
CPT/HCPCS: 73700

== ENCOUNTER 2023-02-26 06:17 | Emergency (ER) | payer SELFPAY ==
[2023-02-26] VITALS (85 sets, daily range): BP systolic 132–217; BP diastolic 72–123; PULSE 71–164; RESP 7–35; TEMP 36.8–37.2; O2SAT 95–100; BMI 21.5
[2023-02-26 06:40] LABS: Add Manual Diff / Slide Review NO; Basophils Absolute Auto 100 /uL (0-100); Basophils Percent Auto 0.7 % (0-2); Eosinophils Absolute Auto 0 /uL (0-450); Eosinophils Percent Auto 0.1 % (2-4); Hematocrit 21.1 % (41-53); Lymphocytes Absolute Auto 1200 /uL (1100-4500); Lymphocytes Percent Auto 11.5 % (25-40); Mean Corpuscular HGB Conc 32.6 % (30-36); Mean Corpuscular Hemoglobin 28.3 PG (26-34); Mean Corpuscular Volume 86.6 fL (80-100); Monocytes Absolute Auto 800 /uL (0-900); Monocytes Percent Auto 8.4 % (3-14); Neutrophils Absolute Auto 8000 /uL (1500-7000); Neutrophils Percent Auto 79.3 % (50-75); Platelet Count 236 X10^3/uL (150-400); Red Blood Cell Count 2.43 X10^6/uL (4.5-5.9); Red Cell Distribution Width 22.8 % (11.6-14.8)
[2023-02-26] MEDS: PANTOPRAZOLE 40 MG VIAL IV (06:44)
[2023-02-26] MEDS: SODIUM CHLORIDE 0.9% 1,000 ML 150 ML IV ×2 (06:44→17:32)
[2023-02-26] MEDS: ONDANSETRON 4 MG/2 ML INJ IV ×2 (06:44→08:20)
--- NOTE | 2023-02-26 06:45 | ED.ABDPAIN ---
HPI - Abdominal Pain <Cristine Willoughby DO - Last Filed: 02/27/23 00:22> General Chief Complaint: Abdominal Pain Stated Complaint: chest pain, vomiting 2 days, unable to unrinate Time Seen by Provider: 02/26/23 06:26 Source: patient Mode of arrival: Wheelchair History of Present Illness HPI narrative: Patient 47-year-old male history of alcohol abuse, cirrhosis congestive heart failure CKD presents today with nausea vomiting which started yesterday. He reports that he is vomiting up black tar. He feels like he is burning sensation in his chest. He is currently spitting up clear. No known varices. He feels like his pancreas is in his throat. No dizziness or lightheadedness. Denies any black stool. Denies fever or chills. No shortness of breath. He reports that he is supposed to be taking lot of medications but he is not taking any Related Data Home Medications Medication Instructions Recorded Confirmed gemfibrozil 600 mg tablet 600 mg PO BID ##0 12/18/12 Previous Rx's Medication Instructions Recorded ondansetron 4 mg disintegrating 4 mg PO Q8H PRN nausea and 08/08/21 tablet vomiting #10 tabs potassium chloride 20 mEq 20 meq PO DAILY #5 tabs 08/08/21 tablet,extended release Allergies Allergy/AdvReac Type Severity Reaction Status Date / Time ibuprofen Allergy Verified 02/26/23 14:41 morphine Allergy Verified 02/26/23 14:41 Review of Systems <Cristine Willoughby DO - Last Filed: 02/27/23 00:22> Review of Systems ROS Unobtainable: All systems reviewed & are unremarkable except as noted in HPI and below Patient History <Cristine Willoughby DO - Last Filed: 02/27/23 00:22> Medical History Skin disorder Social History Smoking Status: Current every day smoker Smoking Status: Current every day smoker alcohol intake frequency: 3 or more drinks per day Substance Use Type: marijuana Exam <DO Mauricio Dowell Last Filed: 02/27/23 00:22> Initial Vital Signs Initial Vital Signs: Vital Signs Temperature 98.4 F 02/26/23 06:24 Pulse Rate 89 02/26/23 06:24 Respiratory Rate 18 02/26/23 06:24 Blood Pressure 174/84 H 02/26/23 06:24 Pulse Oximetry 100 02/26/23 06:24 Oxygen Delivery Method Room Air 02/26/23 06:24 GENERAL: Alert chronically ill thin 47-year-old male and in no acute distress. HEENT: Head atraumatic,EOMI, pupils reactive, face symmetric, moist mucous membranes CARDIOVASCULAR: Regular rate and rhythm without murmurs, rubs or gallops. RESPIRATORY: Breath sounds equal bilaterally, no wheezes rales or rhonchi. ABDOMEN: Soft, nontender. Normoactive bowel sounds all 4 quadrants. No guarding or rebound. EXTREMITIES: Normal range of motion, no clubbing or edema. Neurovascularly intact NEUROLOGICAL: Alert and oriented x4. SKIN: Warm, dry, no laceration, no petechiae, no rashes or lesions. <Garrett Rosales DO - Last Filed: 02/27/23 07:17> Initial Vital Signs Initial Vital Signs: Vital Signs Temperature 98.4 F 02/26/23 06:24 Pulse Rate 89 02/26/23 06:24 Respiratory Rate 18 02/26/23 06:24 Blood Pressure 174/84 H 02/26/23 06:24 Pulse Oximetry 100 02/26/23 06:24 Oxygen Delivery Method Room Air 02/26/23 06:24 Course <Cristine Willoughby DO - Last Filed: 02/27/23 00:22> Orders Ordered: Discontinued Medications Furosemide (Furosemide 20 Mg/2 Ml Vial) 20 mg IV NOW ONE Stop: 02/26/23 07:37 Last Admin: 02/26/23 13:22 Dose: 20 mg Documented By: BRANDEN Sodium Chloride (Normal Saline 0.9%) 1,000 mls @ 150 mls/hr IV CONT RISSA Last Infusion: 02/26/23 18:06 Dose: 0 mls/hr Documented By: Admin: 02/26/23 17:32 Dose: 150 mls/hr Documented By: Infusion: 02/26/23 17:30 Dose: 150 mls/hr Documented By: Admin: 02/26/23 06:44 Dose: 150 mls/hr Documented By: CATALINA Ceftriaxone Sodium 2,000 mg/ (Sodium Chloride) 100 mls @ 200 mls/hr IV NOW ONE Stop: 02/26/23 07:02 Last Infusion: 02/26/23 09:04 Dose: 0 mls/hr Documented By: Admin: 02/26/23 08:20 Dose: 200 mls/hr Documented By: DAMEON Octreotide Acetate 500 mcg/ (Sodium Chloride) 101 mls @ 10.1 mls/hr IV CONT RISSA; Protocol Last Infusion: 02/26/23 18:07 Dose: 0 mcg/hr, 0 mls/hr Documented By: Admin: 02/26/23 17:32 Dose: 50 mcg/hr, 10.1 mls/hr Documented By: Infusion: 02/26/23 17:32 Dose: 50 mcg/hr, 10.1 mls/hr Documented By: Admin: 02/26/23 08:51 Dose: 50 mcg/hr, 10.1 mls/hr Documented By: DAMEON Metoclopramide HCl (Metoclopramide 10 Mg/2 Ml Inj) 10 mg IV NOW ONE Stop: 02/26/23 12:38 Last Admin: 02/26/23 12:53 Dose: 10 mg Documented By: BRANDEN Octreotide Acetate (Octreotide 100 Mcg/Ml Vial) 50 mcg IV NOW ONE Stop: 02/26/23 07:02 Last Admin: 02/26/23 08:15 Dose: 50 mcg Documented By: DAMEON Ondansetron HCl (Ondansetron 4 Mg Odt) 4 mg PO NOW PRN PRN Reason: Nausea And Vomiting Ondansetron HCl (Ondansetron 4 Mg/2 Ml Inj) 4 mg IV NOW PRN PRN Reason: Nausea And Vomiting Last Admin: 02/26/23 08:20 Dose: 4 mg Documented By: DAMEON Ondansetron HCl (Ondansetron 4 Mg/2 Ml Inj) 4 mg IV NOW ONE Stop: 02/26/23 06:36 Last Admin: 02/26/23 06:44 Dose: 4 mg Documented By: CATALINA Pantoprazole Sodium (Pantoprazole 40 Mg Vial) 40 mg IV NOW ONE Stop: 02/26/23 06:36 Last Admin: 02/26/23 06:44 Dose: 40 mg Documented By: CATALINA Vital Signs Vital signs: Vital Signs - 8 hr 02/26/23 16:30 02/26/23 16:31 02/26/23 16:31 Pulse Rate 119 H 115 H Respiratory Rate 32 H 27 H Blood Pressure 164/74 H Pulse Oximetry 98 99 Oxygen Delivery Method 02/26/23 16:45 02/26/23 17:00 02/26/23 17:00 Pulse Rate 102 H 119 H Respiratory Rate 15 12 Blood Pressure 159/104 H Pulse Oximetry 98 100 Oxygen Delivery Method 02/26/23 17:15 02/26/23 17:30 02/26/23 17:30 Pulse Rate 96 H 108 H Respiratory Rate 17 17 Blood Pressure 161/103 H Pulse Oximetry 98 99 Oxygen Delivery Method 02/26/23 17:45 Pulse Rate 125 H Respiratory Rate 16 Blood Pressure Pulse Oximetry 100 Oxygen Delivery Method Room Air <Garrett Rosales DO - Last Filed: 02/27/23 07:17> Orders Ordered: Discontinued Medications Furosemide (Furosemide 20 Mg/2 Ml Vial) 20 mg IV NOW ONE Stop: 02/26/23 07:37 Last Admin: 02/26/23 13:22 Dose: 20 mg Documented By: BRANDEN Sodium Chloride (Normal Saline 0.9%) 1,000 mls @ 150 mls/hr IV CONT RISSA Last Infusion: 02/26/23 18:06 Dose: 0 mls/hr Documented By: Admin: 02/26/23 17:32 Dose: 150 mls/hr Documented By: Infusion: 02/26/23 17:30 Dose: 150 mls/hr Documented By: Admin: 02/26/23 06:44 Dose: 150 mls/hr Documented By: CATALINA Ceftriaxone Sodium 2,000 mg/ (Sodium Chloride) 100 mls @ 200 mls/hr IV NOW ONE Stop: 02/26/23 07:02 Last Infusion: 02/26/23 09:04 Dose: 0 mls/hr Documented By: Admin: 02/26/23 08:20 Dose: 200 mls/hr Documented By: DAMEON Octreotide Acetate 500 mcg/ (Sodium Chloride) 101 mls @ 10.1 mls/hr IV CONT RISSA; Protocol Last Infusion: 02/26/23 18:07 Dose: 0 mcg/hr, 0 mls/hr Documented By: Admin: 02/26/23 17:32 Dose: 50 mcg/hr, 10.1 mls/hr Documented By: Infusion: 02/26/23 17:32 Dose: 50 mcg/hr, 10.1 mls/hr Documented By: Admin: 02/26/23 08:51 Dose: 50 mcg/hr, 10.1 mls/hr Documented By: DAMEON Metoclopramide HCl (Metoclopramide 10 Mg/2 Ml Inj) 10 mg IV NOW ONE Stop: 02/26/23 12:38 Last Admin: 02/26/23 12:53 Dose: 10 mg Documented By: BRANDEN Octreotide Acetate (Octreotide 100 Mcg/Ml Vial) 50 mcg IV NOW ONE Stop: 02/26/23 07:02 Last Admin: 02/26/23 08:15 Dose: 50 mcg Documented By: NR Ondansetron HCl (Ondansetron 4 Mg Odt) 4 mg PO NOW PRN PRN Reason: Nausea And Vomiting Ondansetron HCl (Ondansetron 4 Mg/2 Ml Inj) 4 mg IV NOW PRN PRN Reason: Nausea And Vomiting Last Admin: 02/26/23 08:20 Dose: 4 mg Documented By: DAMEON Ondansetron HCl (Ondansetron 4 Mg/2 Ml Inj) 4 mg IV NOW ONE Stop: 02/26/23 06:36 Last Admin: 02/26/23 06:44 Dose: 4 mg Documented By: CATALINA Pantoprazole Sodium (Pantoprazole 40 Mg Vial) 40 mg IV NOW ONE Stop: 02/26/23 06:36 Last Admin: 02/26/23 06:44 Dose: 40 mg Documented By: CATALINA Consultations Consultation #1: discussed with GI at [facility]. She agrees with need for transfer. Currently no beds at [facility]. Consultation #2: discussed with GI at [facility]. Happy with the plan, requests discussion with hospitalist Dr. Fuentes (hospitalist at [facility]) happy to accept ALS transport arranged with ETA 1800 Vital Signs Vital signs: Vital Signs - 8 hr 02/26/23 16:30 02/26/23 16:31 02/26/23 16:31 Pulse Rate 119 H 115 H Respiratory Rate 32 H 27 H Blood Pressure 164/74 H Pulse Oximetry 98 99 Oxygen Delivery Method 02/26/23 16:45 02/26/23 17:00 02/26/23 17:00 Pulse Rate 102 H 119 H Respiratory Rate 15 12 Blood Pressure 159/104 H Pulse Oximetry 98 100 Oxygen Delivery Method 02/26/23 17:15 02/26/23 17:30 02/26/23 17:30 Pulse Rate 96 H 108 H Respiratory Rate 17 17 Blood Pressure 161/103 H Pulse Oximetry 98 99 Oxygen Delivery Method 02/26/23 17:45 Pulse Rate 125 H Respiratory Rate 16 Blood Pressure Pulse Oximetry 100 Oxygen Delivery Method Room Air MDM - Abdominal Pain <Cristine Fartun, DO - Last Filed: 02/27/23 00:22> Lab Data 02/26/23 13:30 02/26/23 15:15 Labs: Lab Results 02/26/23 02/26/23 02/26/23 Range/Units 06:30 06:30 06:30 WBC 10.0 (4.5-11.0) X10^3/uL RBC 2.43 L (4.5-5.9) X10^6/uL Hgb 6.9 L* (13.5-17.5) g/dL Hct 21.1 L (41-53) % MCV 86.6 (80-100) fL MCH 28.3 (26-34) PG MCHC 32.6 (30-36) % RDW 22.8 H (11.6-14.8) % Plt Count 236 (150-400) X10^3/uL Neut % (Auto) 79.3 H (50-75) % Lymph % (Auto) 11.5 L (25-40) % [place] % (Auto) 8.4 (3-14) % Eos % (Auto) 0.1 L (2-4) % Baso % (Auto) 0.7 (0-2) % Neut # (Auto) 8000 H (7166-3096) /uL Lymph # (Auto) 1200 (2062-2033) /uL [place] # (Auto) 800 (0-900) /uL Eos # (Auto) 0 (0-450) /uL Baso # (Auto) 100 (0-100) /uL RBC Morphology See below Anisocytosis 2+ H PT (10.1-12.7) SECONDS INR (0.9-1.3) APTT (26-36) SECONDS Sodium 139 (137-145) mmol/L Potassium 3.9 (3.4-5.1) mmol/L Chloride 95 L (98-107) mmol/L Carbon Dioxide 26 (22-32) mmol/L BUN 45 H (9-20) mg/dL Creatinine 2.01 H (0.66-1.25) mg/dL Estimated GFR 41 L (>60) mL/min BUN/Creatinine Ratio 22.4 H (6-22) Glucose 153 H (70-100) mg/dL Calcium 8.1 L (8.4-10.2) mg/dL Total Bilirubin 1.5 H (0.2-1.3) mg/dL AST 95 H (17-59) IU/L ALT 60 H (<50) IU/L Alkaline Phosphatase 427 H (38-126) U/L Total Creatine Kinase 878 H (55-170) U/L Troponin I < 0.012 (0.01-0.034) ng/mL NT-Pro-B Natriuret Pep 1680 H (<125) pg/mL Total Protein 7.3 (6.3-8.2) g/dL Albumin 4.3 (3.5-5.0) g/dL Globulin 3.0 (1.7-4.1) g/dL Albumin/Globulin Ratio 1.4 (1.0-2.8) Lipase 237 (23-300) U/L Ethyl Alcohol ( - 10) mg/dL SARS-CoV-2 (PCR) (Negative) Blood Type Antibody Screen Crossmatch 02/26/23 02/26/23 02/26/23 Range/Units 06:30 06:57 13:30 WBC (4.5-11.0) X10^3/uL RBC (4.5-5.9) X10^6/uL Hgb 7.9 L (13.5-17.5) g/dL Hct 23.6 L (41-53) % MCV (80-100) fL MCH (26-34) PG MCHC (30-36) % RDW (11.6-14.8) % Plt Count (150-400) X10^3/uL Neut % (Auto) (50-75) % Lymph % (Auto) (25-40) % [place] % (Auto) (3-14) % Eos % (Auto) (2-4) % Baso % (Auto) (0-2) % Neut # (Auto) (0044-0224) /uL Lymph # (Auto) (5004-9706) /uL [place] # (Auto) (0-900) /uL Eos # (Auto) (0-450) /uL Baso # (Auto) (0-100) /uL RBC Morphology Anisocytosis PT 13.3 H (10.1-12.7) SECONDS INR 1.2 (0.9-1.3) APTT 29 (26-36) SECONDS Sodium (137-145) mmol/L Potassium (3.4-5.1) mmol/L Chloride (98-107) mmol/L Carbon Dioxide (22-32) mmol/L BUN (9-20) mg/dL Creatinine (0.66-1.25) mg/dL Estimated GFR (>60) mL/min BUN/Creatinine Ratio (6-22) Glucose (70-100) mg/dL Calcium (8.4-10.2) mg/dL Total Bilirubin (0.2-1.3) mg/dL AST (17-59) IU/L ALT (<50) IU/L Alkaline Phosphatase (38-126) U/L Total Creatine Kinase (55-170) U/L Troponin I (0.01-0.034) ng/mL NT-Pro-B Natriuret Pep (<125) pg/mL Total Protein (6.3-8.2) g/dL Albumin (3.5-5.0) g/dL Globulin (1.7-4.1) g/dL Albumin/Globulin Ratio (1.0-2.8) Lipase (23-300) U/L Ethyl Alcohol ( - 10) mg/dL SARS-CoV-2 (PCR) (Negative) Blood Type B Negative Antibody Screen Negative Crossmatch See Detail 02/26/23 02/26/23 Range/Units 14:06 15:15 WBC (4.5-11.0) X10^3/uL RBC (4.5-5.9) X10^6/uL Hgb (13.5-17.5) g/dL Hct (41-53) % MCV (80-100) fL MCH (26-34) PG MCHC (30-36) % RDW (11.6-14.8) % Plt Count (150-400) X10^3/uL Neut % (Auto) (50-75) % Lymph % (Auto) (25-40) % [place] % (Auto) (3-14) % Eos % (Auto) (2-4) % Baso % (Auto) (0-2) % Neut # (Auto) (6859-7200) /uL Lymph # (Auto) (8522-6919) /uL [place] # (Auto) (0-900) /uL Eos # (Auto) (0-450) /uL Baso # (Auto) (0-100) /uL RBC Morphology Anisocytosis PT (10.1-12.7) SECONDS INR (0.9-1.3) APTT (26-36) SECONDS Sodium 141 (137-145) mmol/L Potassium 3.7 (3.4-5.1) mmol/L Chloride 100 (98-107) mmol/L Carbon Dioxide 28 (22-32) mmol/L BUN 50 H (9-20) mg/dL Creatinine 2.18 H (0.66-1.25) mg/dL Estimated GFR 37 L (>60) mL/min BUN/Creatinine Ratio 22.9 H (6-22) Glucose 143 H (70-100) mg/dL Calcium 7.5 L (8.4-10.2) mg/dL Total Bilirubin 1.7 H (0.2-1.3) mg/dL AST 73 H (17-59) IU/L ALT 52 H (<50) IU/L Alkaline Phosphatase 349 H (38-126) U/L Total Creatine Kinase (55-170) U/L Troponin I (0.01-0.034) ng/mL NT-Pro-B Natriuret Pep (<125) pg/mL Total Protein 6.8 (6.3-8.2) g/dL Albumin 4.1 (3.5-5.0) g/dL Globulin 2.7 (1.7-4.1) g/dL Albumin/Globulin Ratio 1.5 (1.0-2.8) Lipase (23-300) U/L Ethyl Alcohol < 10 ( - 10) mg/dL SARS-CoV-2 (PCR) Negative (Negative) Blood Type Antibody Screen Crossmatch Point of care testing: Urine Dip Bedside Urine Glucose Negative Bedside Urine Bilirubin - Negative Bedside Urine Ketone - Negative Urine Specific [place] 1.010 Bedside Urine Occult Blood - Negative Bedside Urine pH 7.0 Bedside Urine Protein - Negative Bedside Urine Urobilinogen - Negative Bedside Urine Nitrite - Negative Bedside Urine Leukocytes - Negative Esterase MDM Narrative Medical decision making narrative: Patient 47-year-old male appears older than stated age thin chronic disease history of cirrhosis alcohol abuse presenting with coffee-ground emesis. Blood work pending. Patient signed out to Dr. Rosales [[id number]] (Bobby) Patient received in sign out from [Fartun]. I have reviewed the clinical course and performed an independent history and physical exam. Patient is resting comfortably but admittedly feels a bit dizzy and lightheaded. He has a 30 year history of alcohol abuse but denies any known varices. Prior imaging demonstrates cirrhosis. Given upper GI bleed, coffee-ground emesis, anemia, acute kidney injury patient requires transfer <Garrett Rosales DO - Last Filed: 02/27/23 07:17> Lab Data Labs: Lab Results 02/26/23 02/26/23 02/26/23 Range/Units 06:30 06:30 06:30 WBC 10.0 (4.5-11.0) X10^3/uL RBC 2.43 L (4.5-5.9) X10^6/uL Hgb 6.9 L* (13.5-17.5) g/dL Hct 21.1 L (41-53) % MCV 86.6 (80-100) fL MCH 28.3 (26-34) PG MCHC 32.6 (30-36) % RDW 22.8 H (11.6-14.8) % Plt Count 236 (150-400) X10^3/uL Neut % (Auto) 79.3 H (50-75) % Lymph % (Auto) 11.5 L (25-40) % [place] % (Auto) 8.4 (3-14) % Eos % (Auto) 0.1 L (2-4) % Baso % (Auto) 0.7 (0-2) % Neut # (Auto) 8000 H (3036-9825) /uL Lymph # (Auto) 1200 (4915-9949) /uL [place] # (Auto) 800 (0-900) /uL Eos # (Auto) 0 (0-450) /uL Baso # (Auto) 100 (0-100) /uL RBC Morphology See below Anisocytosis 2+ H PT (10.1-12.7) SECONDS INR (0.9-1.3) APTT (26-36) SECONDS Sodium 139 (137-145) mmol/L Potassium 3.9 (3.4-5.1) mmol/L Chloride 95 L (98-107) mmol/L Carbon Dioxide 26 (22-32) mmol/L BUN 45 H (9-20) mg/dL Creatinine 2.01 H (0.66-1.25) mg/dL Estimated GFR 41 L (>60) mL/min BUN/Creatinine Ratio 22.4 H (6-22) Glucose 153 H (70-100) mg/dL Calcium 8.1 L (8.4-10.2) mg/dL Total Bilirubin 1.5 H (0.2-1.3) mg/dL AST 95 H (17-59) IU/L ALT 60 H (<50) IU/L Alkaline Phosphatase 427 H (38-126) U/L Total Creatine Kinase 878 H (55-170) U/L Troponin I < 0.012 (0.01-0.034) ng/mL NT-Pro-B Natriuret Pep 1680 H (<125) pg/mL Total Protein 7.3 (6.3-8.2) g/dL Albumin 4.3 (3.5-5.0) g/dL Globulin 3.0 (1.7-4.1) g/dL Albumin/Globulin Ratio 1.4 (1.0-2.8) Lipase 237 (23-300) U/L Ethyl Alcohol ( - 10) mg/dL SARS-CoV-2 (PCR) (Negative) Blood Type Antibody Screen Crossmatch 02/26/23 02/26/23 02/26/23 Range/Units 06:30 06:57 13:30 WBC (4.5-11.0) X10^3/uL RBC (4.5-5.9) X10^6/uL Hgb 7.9 L (13.5-17.5) g/dL Hct 23.6 L (41-53) % MCV (80-100) fL MCH (26-34) PG MCHC (30-36) % RDW (11.6-14.8) % Plt Count (150-400) X10^3/uL Neut % (Auto) (50-75) % Lymph % (Auto) (25-40) % [place] % (Auto) (3-14) % Eos % (Auto) (2-4) % Baso % (Auto) (0-2) % Neut # (Auto) (6303-2563) /uL Lymph # (Auto) (5671-4370) /uL [place] # (Auto) (0-900) /uL Eos # (Auto) (0-450) /uL Baso # (Auto) (0-100) /uL RBC Morphology Anisocytosis PT 13.3 H (10.1-12.7) SECONDS INR 1.2 (0.9-1.3) APTT 29 (26-36) SECONDS Sodium (137-145) mmol/L Potassium (3.4-5.1) mmol/L Chloride (98-107) mmol/L Carbon Dioxide (22-32) mmol/L BUN (9-20) mg/dL Creatinine (0.66-1.25) mg/dL Estimated GFR (>60) mL/min BUN/Creatinine Ratio (6-22) Glucose (70-100) mg/dL Calcium (8.4-10.2) mg/dL Total Bilirubin (0.2-1.3) mg/dL AST (17-59) IU/L ALT (<50) IU/L Alkaline Phosphatase (38-126) U/L Total Creatine Kinase (55-170) U/L Troponin I (0.01-0.034) ng/mL NT-Pro-B Natriuret Pep (<125) pg/mL Total Protein (6.3-8.2) g/dL Albumin (3.5-5.0) g/dL Globulin (1.7-4.1) g/dL Albumin/Globulin Ratio (1.0-2.8) Lipase (23-300) U/L Ethyl Alcohol ( - 10) mg/dL SARS-CoV-2 (PCR) (Negative) Blood Type B Negative Antibody Screen Negative Crossmatch See Detail 02/26/23 02/26/23 Range/Units 14:06 15:15 WBC (4.5-11.0) X10^3/uL RBC (4.5-5.9) X10^6/uL Hgb (13.5-17.5) g/dL Hct (41-53) % MCV (80-100) fL MCH (26-34) PG MCHC (30-36) % RDW (11.6-14.8) % Plt Count (150-400) X10^3/uL Neut % (Auto) (50-75) % Lymph % (Auto) (25-40) % [place] % (Auto) (3-14) % Eos % (Auto) (2-4) % Baso % (Auto) (0-2) % Neut # (Auto) (6559-9250) /uL Lymph # (Auto) (6350-8981) /uL [place] # (Auto) (0-900) /uL Eos # (Auto) (0-450) /uL Baso # (Auto) (0-100) /uL RBC Morphology Anisocytosis PT (10.1-12.7) SECONDS INR (0.9-1.3) APTT (26-36) SECONDS Sodium 141 (137-145) mmol/L Potassium 3.7 (3.4-5.1) mmol/L Chloride 100 (98-107) mmol/L Carbon Dioxide 28 (22-32) mmol/L BUN 50 H (9-20) mg/dL Creatinine 2.18 H (0.66-1.25) mg/dL Estimated GFR 37 L (>60) mL/min BUN/Creatinine Ratio 22.9 H (6-22) Glucose 143 H (70-100) mg/dL Calcium 7.5 L (8.4-10.2) mg/dL Total Bilirubin 1.7 H (0.2-1.3) mg/dL AST 73 H (17-59) IU/L ALT 52 H (<50) IU/L Alkaline Phosphatase 349 H (38-126) U/L Total Creatine Kinase (55-170) U/L Troponin I (0.01-0.034) ng/mL NT-Pro-B Natriuret Pep (<125) pg/mL Total Protein 6.8 (6.3-8.2) g/dL Albumin 4.1 (3.5-5.0) g/dL Globulin 2.7 (1.7-4.1) g/dL Albumin/Globulin Ratio 1.5 (1.0-2.8) Lipase (23-300) U/L Ethyl Alcohol < 10 ( - 10) mg/dL SARS-CoV-2 (PCR) Negative (Negative) Blood Type Antibody Screen Crossmatch Point of care testing: Urine Dip Bedside Urine Glucose Negative Bedside Urine Bilirubin - Negative Bedside Urine Ketone - Negative Urine Specific [place] 1.010 Bedside Urine Occult Blood - Negative Bedside Urine pH 7.0 Bedside Urine Protein - Negative Bedside Urine Urobilinogen - Negative Bedside Urine Nitrite - Negative Bedside Urine Leukocytes - Negative Esterase MDM Narrative Medical decision making narrative: Patient 47-year-old male appears older than stated age thin chronic disease history of cirrhosis alcohol abuse presenting with coffee-ground emesis. Blood work pending. Patient signed out to Dr. Rosales [[id number]] (Bobby) Patient received in sign out from [Fartun]. I have reviewed the clinical course and performed an independent history and physical exam. Patient is resting comfortably but admittedly feels a bit dizzy and lightheaded. He has a 30 year history of alcohol abuse but denies any known varices. Prior imaging demonstrates cirrhosis. Given upper GI bleed, coffee-ground emesis, anemia, acute kidney injury patient requires transfer <Garrett Rosales, DO - Last Filed: 02/27/23 07:17> Critical Care Time Critical Care Time: Yes Total Critical Care Time: 45 Attestation: The high probability of a clinically significant, sudden or life threatening deterioration of the [GI] system(s) required my full and direct attention, intervention and personal management. The aggregate critical care time was [45] minutes. This time is in addition to time spent performing reported procedures but includes the following: [x] Data Review and interpretation [x] Patient assessment and monitoring of vital signs [x] Documentation [x] Medication orders and management Discharge Plan Departure Patient Disposition: [facility] Clinical Impression: Acute upper gastrointestinal bleeding, Acute kidney injury Prescriptions: No Action gemfibrozil 600 MG tablet 600 mg PO BID Qty: 0 potassium chloride 20 mEq tablet extended release 20 meq PO DAILY Qty: 5 0RF ondansetron 4 mg tablet,disintegrating 4 mg PO Q8H PRN (Reason: nausea and vomiting) Qty: 10 0RF
[2023-02-26 06:51] LABS: Albumin 4.3 g/dL (3.5-5.0); Albumin Globulin Ratio 1.4 (1.0-2.8); Alkaline Phosphatase 427 U/L (38-126); Aspartate Aminotransferase 95 IU/L (17-59); BUN Creatinine Ratio 22.4 (6-22); Bilirubin Total 1.5 mg/dL (0.2-1.3); Blood Urea Nitrogen 45 mg/dL (9-20); Calcium 8.1 mg/dL (8.4-10.2); Carbon Dioxide 26 mmol/L (22-32); Chloride 95 mmol/L (98-107); Estimated Glomerular Filt Rate 41 mL/min (>60); Glucose 153 mg/dL (70-100); HEMOLYSIS < 15 (0-50); Hemoglobin 6.9 g/dL (13.5-17.5); Lipase 237 U/L (23-300); Potassium 3.9 mmol/L (3.4-5.1); Sodium 139 mmol/L (137-145); Total Protein 7.3 g/dL (6.3-8.2)
[2023-02-26 06:57] LABS: INR 1.2 (0.9-1.3); Prothrombin Time 13.3 SECONDS (10.1-12.7)
[2023-02-26 06:58] LABS: Creatine Kinase 878 U/L (55-170)
[2023-02-26 06:59] LABS: PTT Partial Thromboplastin Tim 29 SECONDS (26-36)
[2023-02-26 07:06] LABS: Alanine Aminotransferase 60 IU/L (<50)
[2023-02-26 07:10] LABS: Anisocytosis 2+
[2023-02-26 07:11] LABS: NT-proBNP (BNP-Adult 18+) 1680 pg/mL (<125); Troponin I < 0.012 ng/mL (0.01-0.034)
[2023-02-26] MEDS: OCTREOTIDE 100 MCG/ML VIAL 50 MCG IV (08:15)
[2023-02-26] MEDS: cefTRIAXone 2,000 MG in SODIUM CHLORIDE 0.9% 100 ML 200 MG IV (08:20)
--- NOTE | 2023-02-26 08:27 | PC.NURSE ---
Addendum entered by Lia Carvajal R.N. 02/26/23 08:28: blood started at 0824 Original Note: prior to blood admin pt has irregular heart rate, states he knows he has Afib. pt is vomiting regularly.
--- NOTE | 2023-02-26 08:45 | PC.NURSE ---
BUSINESS SYSTEMS ADVISOR Note: Called [facility] for placement for pt. Called [phone] for consultation with on-call GI doc. [facility] will be calling back
[2023-02-26] MEDS: OCTREOTIDE 500 MCG in SODIUM CHLORIDE 0.9% 100 ML 10.1 MCG IV ×2 (08:51→17:32)
--- NOTE | 2023-02-26 11:42 | PC.NURSE ---
pt is perla dempsey
--- NOTE | 2023-02-26 11:45 | PC.NURSE ---
Addendum entered by Anna Arguello CNA 02/26/23 12:40: Nathalia from [facility] had trouble getting facesheet via fax. Emailed secure file to [email or web address] Original Note: DAPHNEY Note: Attempted to find placement for pt transfer. Spoke with Da from [facility], Mikael from [facility], Nathalia from [facility], and Cheyanne from . Pt placed on all of their waitlists and faxed over facesheets and labs. Awaiting call backs from these facilities.
[2023-02-26] MEDS: METOCLOPRAMIDE 10 MG/2 ML INJ IV (12:53)
[2023-02-26] MEDS: FUROSEMIDE 20 MG/2 ML VIAL IV (13:22)
[2023-02-26 13:58] LABS: Hematocrit 23.6 % (41-53); Hemoglobin 7.9 g/dL (13.5-17.5)
[2023-02-26 14:22] LABS: COVID19 -Nasal RAPID Negative (Negative)
[2023-02-26 15:40] LABS: Albumin 4.1 g/dL (3.5-5.0); Albumin Globulin Ratio 1.5 (1.0-2.8); Alkaline Phosphatase 349 U/L (38-126); Aspartate Aminotransferase 73 IU/L (17-59); BUN Creatinine Ratio 22.9 (6-22); Bilirubin Total 1.7 mg/dL (0.2-1.3); Blood Urea Nitrogen 50 mg/dL (9-20); Calcium 7.5 mg/dL (8.4-10.2); Carbon Dioxide 28 mmol/L (22-32); Chloride 100 mmol/L (98-107); Estimated Glomerular Filt Rate 37 mL/min (>60); Ethanol (ETOH) < 10 mg/dL; Globulin 2.7 g/dL (1.7-4.1); Glucose 143 mg/dL (70-100); HEMOLYSIS 27 (0-50); Potassium 3.7 mmol/L (3.4-5.1); Sodium 141 mmol/L (137-145); Total Protein 6.8 g/dL (6.3-8.2)
[2023-02-26 15:46] LABS: Alanine Aminotransferase 52 IU/L (<50)
--- NOTE | 2023-02-26 18:26 | PC.NURSE ---
informed nurse at [facility] that pt would be arriving during commis chef and that report would not be available after 1929. she verbalized understanding
== END 2023-02-26 18:26 | disposition short-term general hospital (02) ==
PROVIDERS: Emergency Medicine; Emergency Provider Emergency Medicine
DX: K92.2 Gastrointestinal hemorrhage, unspecified (principal); N17.9 Acute kidney failure, unspecified; R11.2 Nausea with vomiting, unspecified; Z20.822 Contact with and (suspected) exposure to COVID-19
CPT/HCPCS: 36415; 36430; 51798; 80053; 80320; 81003; 82550; 83690; 83880; 84484; 85014; 85018; 85025; 85610; 85730; 86850; 86900; 86901; 87635; 93005; 93010; 96365; 96366; 96367; 96375; 96376; 99285; 99291; C9803; P9016; C9113; J0696; J1940; J2354; J2405; J2765

== ENCOUNTER 2025-08-11 14:18 | Observation (INO) | payer OTHER, SELFPAY ==
[2025-08-11] VITALS (22 sets, daily range): BP systolic 127–192; BP diastolic 86–123; PULSE 42–131; RESP 13–26; TEMP 36.3; O2SAT 98–100; BMI 19.6
--- NOTE | 2025-08-11 17:13 | EKG_ITS ---
[facility] [address] [place] [address] Test Date: 2025-08-11 Pat Name: Tonio Olivarez Department: [facility] Room: Gender: Male Network Consultant: JONAS : 1975 Requested By: Order Number: [id number] Reading MD: Slade Torres Measurements Intervals [place] Rate: 117 P: PA: QRS: 35 QRSD: 86 T: 129 QT: 296 QTc: 412 Interpretive Statements Atrial fibrillation with rapid ventricular response Minimal voltage criteria for LVH, may be normal variant ( Sokolow-Rush ) ST & T wave abnormality, consider lateral ischemia Electronically Signed On 08-12-2025 7:10:21 PST by Slade Torres
[2025-08-11 17:14] LABS: Add Manual Diff / Slide Review NO; Hematocrit 38.0 % (41-53); Hemoglobin 12.8 g/dL (13.5-17.5); Lymphocytes Absolute Auto 1100 /uL (1100-4500); Mean Corpuscular HGB Conc 33.7 % (30-36); Mean Corpuscular Hemoglobin 35.5 PG (26-34); Mean Corpuscular Volume 105.2 fL (80-100); Platelet Count 247 X10^3/uL (150-400)
--- NOTE | 2025-08-11 17:15 | ED_ITS ---
HPI - Dental/Oral <Cristine Willoughby DO - Last Filed: 08/12/25 07:13> General Chief complaint: Dental/Oral Stated complaint: sent from [facility] for imaging Time Seen by Provider: 08/11/25 17:12 History of Present Illness HPI Narrative: Patient is a 49-year-old year old male history of alcohol abuse, cirrhosis, congestive heart failure with EF of approximately 6% per patient, chronic kidney to see his presenting today with dental pain. He reports he has had some left- sided dental pain for about 2 weeks. He now feels like it is getting more swollen. It nursing and patient both report some tracking or hole in his mouth. While in the waiting room he thought he was unable to breathe. But he does not have any significant swelling or tongue swelling or angioedema. He is managing his secretions okay. He is also found to be in AFib with RVR. It sounds like he has a had AFib in the past but not currently on any medications. Patient states that he has decrease his alcohol use significantly over the last 1 year. He used to drink gal or half a gal daily and now has 1 beer daily and he has already had his 1 beer for the day. Related Data Home Medications ?Medication ?Instructions ?Recorded ?Confirmed No Known Home Medications 08/12/2507/26 Allergies Allergy/AdvReac Type Severity Reaction Status Date / Time morphine Allergy Blister Verified 08/11/25 14:54 Patient History <Cristine Willoughby DO - Last Filed: 08/12/25 07:13> Medical History Skin disorder Social History household members: significant other Smoking Status: Current every day smoker alcohol intake: current Smoking Status: Current every day smoker tobacco type: cigarettes alcohol intake frequency: 3 or more drinks per day Exam <Cristine Willoughby DO - Last Filed: 08/12/25 07:13> Initial Vital Signs Initial Vital Signs: Vital Signs Temperature 97.3 F L 08/11/25 14:51 Pulse Rate 42 L 08/11/25 14:51 Respiratory Rate 18 08/11/25 14:51 Blood Pressure 170/93 H 08/11/25 14:51 Pulse Oximetry 100 08/11/25 14:51 Oxygen Delivery Method Room Air 08/11/25 14:51 GENERAL: Alert jaundiced thin 49-year-old male HEENT: Head atraumatic,EOMI, pupils reactive, face symmetric, moist mucous membranes MOUTH: Significant facial swelling he has poor dentition throughout left side posterior the tongue there does appear to be some Tylenol in no gross drainage or discharge CARDIOVASCULAR: Tachycardic irregular RESPIRATORY: Breath sounds equal bilaterally, no wheezes rales or rhonchi. ABDOMEN: Soft, nontender. Normoactive bowel sounds all 4 quadrants. No guarding or rebound. EXTREMITIES: Normal range of motion, no clubbing or edema. Neurovascularly intact NEUROLOGICAL: Alert and oriented x4.Normal gait and speech. Cranial nerves II through XII grossly intact. SKIN: Warm, dry, no laceration, no petechiae, no rashes or lesions. <Teo Ibarra, DO - Last Filed: 08/11/25 21:55> Initial Vital Signs Initial Vital Signs: Vital Signs Temperature 97.3 F L 08/11/25 14:51 Pulse Rate 42 L 08/11/25 14:51 Respiratory Rate 18 08/11/25 14:51 Blood Pressure 170/93 H 08/11/25 14:51 Pulse Oximetry 100 08/11/25 14:51 Oxygen Delivery Method Room Air 08/11/25 14:51 Course <Cristine Willoughby, DO - Last Filed: 08/12/25 07:13> Orders Ordered: Acetaminophen (Acetaminophen 325 Mg Tablet) 650 mg PO Q6H PRN PRN Reason: Fever/Mild Pain (1-3) Hydrocodone Bitart/Acetaminophen (Hydrocodone/Acet 5/325 Tablet) 1 tab PO Q4H PRN PRN Reason: Pain, Moderate (4-6) Ampicillin Sodium/Sulbactam (Sodium 3 gm/ Sodium Chloride) 100 mls @ 200 mls/hr IV Q8H RISSA Last Infusion: 08/12/25 02:08 Dose: Infused Documented By: Admin: 08/12/25 01:34 Dose: 200 mls/hr Documented By: SLICK Metoprolol Tartrate (Metoprolol Tartrate 5 Mg/5 Ml Inj) 5 mg IV Q2HR PRN PRN Reason: Heart Rate- High Naloxone HCl (Naloxone 0.4 Mg/Ml Vial) 0.2 mg IV Q2MIN PRN PRN Reason: Opiate Reversal Ondansetron HCl (Ondansetron 4 Mg/2 Ml Inj) 4 mg IV Q8HR PRN PRN Reason: Nausea And Vomiting Oxycodone/Acetaminophen (Oxycodone/Acetaminophen 5/325 Tablet) 1 tab PO Q6HR PRN PRN Reason: Pain, Severe (7-10) Last Admin: 08/12/25 02:10 Dose: 1 tab Documented By: SLICK Discontinued Medications Hydrocodone Bitart/Acetaminophen (Hydrocodone/Acet 5/325 Tablet) 1 tab PO NOW ONE Stop: 08/11/25 20:39 Last Admin: 08/11/25 20:54 Dose: 1 tab Documented By: SHANTI Apixaban (Apixaban 5 Mg Tablet) 5 mg PO NOW ONE Stop: 08/11/25 19:58 Last Admin: 08/11/25 20:55 Dose: 5 mg Documented By: SHANTI Diphenhydramine HCl (Diphenhydramine 50 Mg/Ml Vial) 25 mg IV NOW ONE Stop: 08/11/25 17:55 Last Admin: 08/11/25 18:01 Dose: 25 mg Documented By: FRANKI Sodium Chloride (Normal Saline 0.9%) 1,000 mls @ 1,000 mls/hr IV BOLUS ONE Stop: 08/11/25 18:11 Last Admin: 08/11/25 17:18 Dose: Not Given Documented By: FRANKI Ampicillin Sodium/Sulbactam (Sodium 3 gm/ Sodium Chloride) 100 mls @ 200 mls/hr IV NOW ONE Stop: 08/11/25 17:32 Last Infusion: 08/11/25 18:53 Dose: Infused Documented By: Admin: 08/11/25 18:01 Dose: 200 mls/hr Documented By: FRANKI Amiodarone HCl/Dextrose (Nexterone) 150 mg in 100 mls @ 600 mls/hr IV NOW ONE; Protocol Stop: 08/11/25 21:28 Last Infusion: 08/11/25 22:00 Dose: Infused Documented By: Admin: 08/11/25 21:41 Dose: 600 mls/hr Documented By: SHANTI Methylprednisolone (Methylprednisolone Succ 125 Mg/2 Ml Vial) 125 mg IV NOW ONE Stop: 08/11/25 17:55 Last Admin: 08/11/25 18:04 Dose: 125 mg Documented By: FRANKI Metoprolol Tartrate (Metoprolol Tartrate 5 Mg/5 Ml Inj) 5 mg IV NOW ONE Stop: 08/11/25 20:46 Last Admin: 08/11/25 21:19 Dose: Not Given Documented By: SHANTI Nicotine (Nicotine 14 Patch) 14 mg TOP NOW ONE Stop: 08/11/25 23:12 Last Admin: 08/12/25 01:33 Dose: 14 mg Documented By: SLICK Vital Signs Vital signs: Vital Signs - 8 hr 08/11/25 14:51 08/11/25 16:55 08/11/25 17:00 Temperature 97.3 F L Pulse Rate 42 L 69 123 H Respiratory Rate 18 14 Blood Pressure 170/93 H Pulse Oximetry 100 100 100 Oxygen Delivery Method Room Air 08/11/25 17:27 08/11/25 17:27 08/11/25 17:30 Temperature Pulse Rate 117 H Respiratory Rate 13 Blood Pressure 192/108 H 151/86 H Pulse Oximetry 100 Oxygen Delivery Method 08/11/25 17:30 08/11/25 18:00 08/11/25 18:30 Temperature Pulse Rate 125 H 118 H Respiratory Rate 17 14 Blood Pressure 138/99 H Pulse Oximetry 100 99 Oxygen Delivery Method 08/11/25 18:30 08/11/25 19:00 08/11/25 19:30 Temperature Pulse Rate 121 H 63 64 Respiratory Rate Blood Pressure Pulse Oximetry 100 100 100 Oxygen Delivery Method 08/11/25 20:00 08/11/25 20:30 08/11/25 21:00 Temperature Pulse Rate 131 H 118 H 121 H Respiratory Rate 20 19 26 H Blood Pressure Pulse Oximetry 100 100 100 Oxygen Delivery Method Room Air <Teo Ibarra, DO - Last Filed: 08/11/25 21:55> Orders Ordered: Acetaminophen (Acetaminophen 325 Mg Tablet) 650 mg PO Q6H PRN PRN Reason: Fever/Mild Pain (1-3) Hydrocodone Bitart/Acetaminophen (Hydrocodone/Acet 5/325 Tablet) 1 tab PO Q4H PRN PRN Reason: Pain, Moderate (4-6) Ampicillin Sodium/Sulbactam (Sodium 3 gm/ Sodium Chloride) 100 mls @ 200 mls/hr IV Q8H [facility] Last Infusion: 08/12/25 02:08 Dose: Infused Documented By: Admin: 08/12/25 01:34 Dose: 200 mls/hr Documented By: SLICK Metoprolol Tartrate (Metoprolol Tartrate 5 Mg/5 Ml Inj) 5 mg IV Q2HR PRN PRN Reason: Heart Rate- High Naloxone HCl (Naloxone 0.4 Mg/Ml Vial) 0.2 mg IV Q2MIN PRN PRN Reason: Opiate Reversal Ondansetron HCl (Ondansetron 4 Mg/2 Ml Inj) 4 mg IV Q8HR PRN PRN Reason: Nausea And Vomiting Oxycodone/Acetaminophen (Oxycodone/Acetaminophen 5/325 Tablet) 1 tab PO Q6HR PRN PRN Reason: Pain, Severe (7-10) Last Admin: 08/12/25 02:10 Dose: 1 tab Documented By: SLICK Discontinued Medications Hydrocodone Bitart/Acetaminophen (Hydrocodone/Acet 5/325 Tablet) 1 tab PO NOW ONE Stop: 08/11/25 20:39 Last Admin: 08/11/25 20:54 Dose: 1 tab Documented By: SHANTI Apixaban (Apixaban 5 Mg Tablet) 5 mg PO NOW ONE Stop: 08/11/25 19:58 Last Admin: 08/11/25 20:55 Dose: 5 mg Documented By: SHANTI Diphenhydramine HCl (Diphenhydramine 50 Mg/Ml Vial) 25 mg IV NOW ONE Stop: 08/11/25 17:55 Last Admin: 08/11/25 18:01 Dose: 25 mg Documented By: FRANKI Sodium Chloride (Normal Saline 0.9%) 1,000 mls @ 1,000 mls/hr IV BOLUS ONE Stop: 08/11/25 18:11 Last Admin: 08/11/25 17:18 Dose: Not Given Documented By: FRANKI Ampicillin Sodium/Sulbactam (Sodium 3 gm/ Sodium Chloride) 100 mls @ 200 mls/hr IV NOW ONE Stop: 08/11/25 17:32 Last Infusion: 08/11/25 18:53 Dose: Infused Documented By: Admin: 08/11/25 18:01 Dose: 200 mls/hr Documented By: FRANKI Amiodarone HCl/Dextrose (Nexterone) 150 mg in 100 mls @ 600 mls/hr IV NOW ONE; Protocol Stop: 08/11/25 21:28 Last Infusion: 08/11/25 22:00 Dose: Infused Documented By: Admin: 08/11/25 21:41 Dose: 600 mls/hr Documented By: SHANTI Methylprednisolone (Methylprednisolone Succ 125 Mg/2 Ml Vial) 125 mg IV NOW ONE Stop: 08/11/25 17:55 Last Admin: 08/11/25 18:04 Dose: 125 mg Documented By: FRANKI Metoprolol Tartrate (Metoprolol Tartrate 5 Mg/5 Ml Inj) 5 mg IV NOW ONE Stop: 08/11/25 20:46 Last Admin: 08/11/25 21:19 Dose: Not Given Documented By: SHANTI Nicotine (Nicotine 14 Patch) 14 mg TOP NOW ONE Stop: 08/11/25 23:12 Last Admin: 08/12/25 01:33 Dose: 14 mg Documented By: SLICK Vital Signs Vital signs: Vital Signs - 8 hr 08/11/25 14:51 08/11/25 16:55 08/11/25 17:00 Temperature 97.3 F L Pulse Rate 42 L 69 123 H Respiratory Rate 18 14 Blood Pressure 170/93 H Pulse Oximetry 100 100 100 Oxygen Delivery Method Room Air 08/11/25 17:27 08/11/25 17:27 08/11/25 17:30 Temperature Pulse Rate 117 H Respiratory Rate 13 Blood Pressure 192/108 H 151/86 H Pulse Oximetry 100 Oxygen Delivery Method 08/11/25 17:30 08/11/25 18:00 08/11/25 18:30 Temperature Pulse Rate 125 H 118 H Respiratory Rate 17 14 Blood Pressure 138/99 H Pulse Oximetry 100 99 Oxygen Delivery Method 08/11/25 18:30 08/11/25 19:00 08/11/25 19:30 Temperature Pulse Rate 121 H 63 64 Respiratory Rate Blood Pressure Pulse Oximetry 100 100 100 Oxygen Delivery Method 08/11/25 20:00 08/11/25 20:30 08/11/25 21:00 Temperature Pulse Rate 131 H 118 H 121 H Respiratory Rate 20 19 26 H Blood Pressure Pulse Oximetry 100 100 100 Oxygen Delivery Method Room Air MDM - Dental/Oral <Cristine Willoughby, - Last Filed: 08/12/25 07:13> Lab Data 08/12/25 05:58 08/12/25 05:58 Labs: Lab Results 08/11/25 08/11/25 08/11/25 Range/Units 17:01 19:50 20:02 WBC 13.0 H (4.5-11.0) X10^3/uL RBC 3.61 L (4.5-5.9) X10^6/uL Hgb 12.8 L (13.5-17.5) g/dL Hct 38.0 L (41-53) % MCV 105.2 H (80-100) fL MCH 35.5 H (26-34) PG MCHC 33.7 (30-36) % RDW 13.5 (11.6-14.8) % Plt Count 247 (150-400) X10^3/uL Neut % (Auto) 85.0 H (50-75) % Lymph % (Auto) 8.7 L (25-40) % [place] % (Auto) 4.8 (3-14) % Eos % (Auto) 1.0 L (2-4) % Baso % (Auto) 0.5 (0-2) % Neut # (Auto) 11893 H (4603-7079) /uL Lymph # (Auto) 1100 (3898-5945) /uL [place] # (Auto) 600 (0-900) /uL Eos # (Auto) 100 (0-450) /uL Baso # (Auto) 100 (0-100) /uL Sodium 136 L (137-145) mmol/L Potassium 4.6 (3.4-5.1) mmol/L Chloride 102 (98-107) mmol/L Carbon Dioxide 22 (22-32) mmol/L BUN 16 (9-20) mg/dL Creatinine 1.62 H (0.66-1.25) mg/dL Estimated GFR 52 L (>60) mL/min BUN/Creatinine Ratio 9.9 (6-22) Glucose 110 H (70-99) mg/dL Lactate 2.2 H 1.1 (0.7-2.1) mmol/L Calcium 8.7 (8.4-10.2) mg/dL Total Bilirubin 3.3 H (0.2-1.3) mg/dL AST 69 H (17-59) IU/L ALT 24 (<50) IU/L Alkaline Phosphatase 458 H (38-126) U/L Total Creatine Kinase 30 L (55-170) U/L Troponin I 0.015 0.016 (0.01-0.034) ng/mL NT-Pro-B Natriuret Pep 94598 H (<125) pg/mL Total Protein 7.0 (6.3-8.2) g/dL Albumin 3.8 (3.5-5.0) g/dL Globulin 3.2 (1.7-4.1) g/dL Albumin/Globulin Ratio 1.2 (1.0-2.8) Lipase 350 H (23-300) U/L Procalcitonin 0.825 H (<0.5) ng/mL TSH 8.33 H (0.47-4.68) uIU/mL Ethyl Alcohol < 10 (<10) mg/dL ECG Data Interpretation: Atrial fibrillation rate 117 no ischemic changes MDM Narrative Medical decision making narrative: [facility] CC: Dental pain Complicating co-morbidities: Cirrhosis, cardiac, CKD, alcoholic Data collected from: Patient Medical records reviewed: Previously seen in 2022 concern for variceal bleed at that time he was anemic it chronic kidney disease in his ultimately transferred to [facility] Differential considered: Deep neck soft tissue infection, Aureliano angina, sepsis Exam documented above, pertinent findings include: Patient has severely dry skin he is jaundice. In his mouth left posterior there is a trach poor dentition throughout no obvious abscess no evidence of angioedema or airway compromise he is managing his own secretions Lab Test results independently reviewed as above. Pertinent findings: CBC WBC is 13 hemoglobin 12.8 hematocrit 38 platelets 247 CMP creatinine today is 1.62 it was previously 2.18 electrolytes within normal limits sodium is 136 Lactate 2.2, procalcitonin 0.825 Bilirubin 3.3, AST 69, ALT 24, alk-phos 458, lipase 350 bilirubin is up from 20 23 at that time it is 1.7 CPK 30, troponin 0.015 Alcohol negative Independently reviewed EKG as above Atrial fibrillation rate [address] changes Imaging studies independently reviewed: CT soft tissue neck Consultations: [ ] Treatments: Unasyn, Solu-Medrol Benadryl given for contrast reaction Re-evaluations: [ ] Discussion: Patient 49-year-old male who has known cirrhosis presenting today with dental infection. He does have obvious abnormality in his mouth. CT soft tissue neck is pending. Blood work is concerning for sepsis he is given a dose of Unasyn. Fluids were held due to concern for congestive heart failure. He is not hypotensive heart rate is AFib he is not anticoagulated. Bilirubin is noted to be 3.3 thought to be due secondary to cirrhosis he has no abdominal pain. Patient signed out to <Teo Ibarra, DO - Last Filed: 08/11/25 21:55> Lab Data Labs: Lab Results 08/11/25 08/11/25 08/11/25 Range/Units 17:01 19:50 20:02 WBC 13.0 H (4.5-11.0) X10^3/uL RBC 3.61 L (4.5-5.9) X10^6/uL Hgb 12.8 L (13.5-17.5) g/dL Hct 38.0 L (41-53) % MCV 105.2 H (80-100) fL MCH 35.5 H (26-34) PG MCHC 33.7 (30-36) % RDW 13.5 (11.6-14.8) % Plt Count 247 (150-400) X10^3/uL Neut % (Auto) 85.0 H (50-75) % Lymph % (Auto) 8.7 L (25-40) % [place] % (Auto) 4.8 (3-14) % Eos % (Auto) 1.0 L (2-4) % Baso % (Auto) 0.5 (0-2) % Neut # (Auto) 81736 H (9774-5363) /uL Lymph # (Auto) 1100 (2017-9293) /uL [place] # (Auto) 600 (0-900) /uL Eos # (Auto) 100 (0-450) /uL Baso # (Auto) 100 (0-100) /uL Sodium 136 L (137-145) mmol/L Potassium 4.6 (3.4-5.1) mmol/L Chloride 102 (98-107) mmol/L Carbon Dioxide 22 (22-32) mmol/L BUN 16 (9-20) mg/dL Creatinine 1.62 H (0.66-1.25) mg/dL Estimated GFR 52 L (>60) mL/min BUN/Creatinine Ratio 9.9 (6-22) Glucose 110 H (70-99) mg/dL Lactate 2.2 H 1.1 (0.7-2.1) mmol/L Calcium 8.7 (8.4-10.2) mg/dL Total Bilirubin 3.3 H (0.2-1.3) mg/dL AST 69 H (17-59) IU/L ALT 24 (<50) IU/L Alkaline Phosphatase 458 H (38-126) U/L Total Creatine Kinase 30 L (55-170) U/L Troponin I 0.015 0.016 (0.01-0.034) ng/mL NT-Pro-B Natriuret Pep 52557 H (<125) pg/mL Total Protein 7.0 (6.3-8.2) g/dL Albumin 3.8 (3.5-5.0) g/dL Globulin 3.2 (1.7-4.1) g/dL Albumin/Globulin Ratio 1.2 (1.0-2.8) Lipase 350 H (23-300) U/L Procalcitonin 0.825 H (<0.5) ng/mL TSH 8.33 H (0.47-4.68) uIU/mL Ethyl Alcohol < 10 (<10) mg/dL Imaging Data Extremity x-ray #1: Radiologist's Impression: [place] [address] CT Scan Report Signed Patient: Tonio Olivarez MR#: [id number] : 1975 Acct:[id number] Age/Sex: 49 / M Date of Service: 08/11/25 Loc: ED Accession Number: [id number] Procedure: CT soft tissue neck w con Ordering Provider: Cristine Willoughby D.O. PROCEDURE: CT SOFT TISSUE NECK W CON INDICATIONS: left sided swelling TECHNIQUE: After the administration of intravenous contrast, 3.0 mm axial sections acquired from the sella to the aortic arch. Additional oblique axial 3.0 mm sections acquired through the pharynx. 3 mm thick coronal and sagittal reformats were generated. For radiation dose reduction, the following was used: automated exposure control. COMPARISON: None. FINDINGS: Image quality: Excellent. Lymph nodes: Prominent bilateral level 2 cervical chain nodes are present. Vessels: Visualized vasculature appears patent. Neck spaces: The oropharynx, nasopharynx, and pharynx demonstrate no mucosal lesions. The vocal cords, false vocal cords, pyriform sinuses, epiglottis, vallecula, and tongue base all appear normal. Extramucosal spaces appear unremarkable. Glands: The parotid and submandibular glands appear normal. Thyroid gland is unremarkable. Miscellaneous: Visualized brain and orbits appear normal. Lung apices appear clear. Mild facial edema. Bones: No suspicious bony lesions. Visualized sinuses and mastoids appear unremarkable. Extensive dental caries with associated periapical abscesses, resulting in bone loss of the left axilla. IMPRESSION: Extensive odontogenic disease, including many cavities, periapical abscesses and bone loss of the left maxilla. Odontogenic referral is recommended. Mild soft tissue edema and reactive lymph nodes are present. MDM Narrative Medical decision making narrative: MDM CC: Dental pain Complicating co-morbidities: Cirrhosis, cardiac, CKD, alcoholic Data collected from: Patient Medical records reviewed: Previously seen in 2022 concern for variceal bleed at that time he was anemic it chronic kidney disease in his ultimately transferred to [facility] Differential considered: Deep neck soft tissue infection, Aureliano angina, sepsis Exam documented above, pertinent findings include: Patient has severely dry skin he is jaundice. In his mouth left posterior there is a trach poor dentition throughout no obvious abscess no evidence of angioedema or airway compromise he is managing his own secretions Lab Test results independently reviewed as above. Pertinent findings: CBC WBC is 13 hemoglobin 12.8 hematocrit 38 platelets 247 CMP creatinine today is 1.62 it was previously 2.18 electrolytes within normal limits sodium is 136 Lactate 2.2, procalcitonin 0.825 Bilirubin 3.3, AST 69, ALT 24, alk-phos 458, lipase 350 bilirubin is up from 20 23 at that time it is 1.7 CPK 30, troponin 0.015 Alcohol negative Independently reviewed EKG as above Atrial fibrillation rate [address] changes Imaging studies independently reviewed: CT soft tissue neck Consultations: [ ] Treatments: Unasyn, Solu-Medrol Benadryl given for contrast reaction Re-evaluations: [ ] Discussion: Patient 49-year-old male who has known cirrhosis presenting today with dental infection. He does have obvious abnormality in his mouth. CT soft tissue neck is pending. Blood work is concerning for sepsis he is given a dose of Unasyn. Fluids were held due to concern for congestive heart failure. He is not hypotensive heart rate is AFib he is not anticoagulated. Bilirubin is noted to be 3.3 thought to be due secondary to cirrhosis he has no abdominal pain. Patient signed out to Case d/w to start on amiodarone 150mg IV over 10mins. Case d/w Dr.Kevin Cavazos ENT to start on unasyn or clindamycin and also Dr.Pradeep Kathleen local dentist available in AM for consult. Case d/w hospitalist who has graciously accepted pt for inpatient admission. Critical Care Time <Cristine Willoughby DO - Last Filed: 08/12/25 07:13> Critical Care Time Critical Care Time: Yes Total Critical Care Time: 35 Attestation: The high probability of a clinically significant, sudden or life threatening deterioration of the [cardiovascular] system(s) required my full and direct attention, intervention and personal management. The aggregate critical care time was 35 minutes. This time is in addition to time spent performing reported procedures but includes the following: [x] Data Review and interpretation [x] Patient assessment and monitoring of vital signs [x] Documentation [x] Medication orders and management Discharge Plan Departure Patient Disposition: Admitted as Observation Clinical Impression: Atrial fibrillation with rapid ventricular response, Dental infection Admit Date/Time: 08/11/25 22:04 Admit Provider: Gerson Farias Sepsis Evaluation (ED) <DO Mauricio Dowell Filed: 08/12/25 07:13> Level 1 - Infection Sepsis Infection Criteria Present: Suspected New Infection Level 2 - SIRS Sepsis SIRS Criteria Present: WBC < 4k or > 12k or Bands > 10% and Pulse > 90 bpm Level 3 - Organ Dysfunction Sepsis Organ Dysfunction Criteria Present: Total Bilirubin > 2 mg/dl Response Reason for ordering crystalloid fluids < 30 mL/kg:: Heart failure (patient has HX of heart failure)
--- NOTE | 2025-08-11 17:18 | PC.NURSE ---
fluids withheld: pt states EF is 6%
--- NOTE | 2025-08-11 17:23 | DI.CT.S_ITS ---
PROCEDURE: CT SOFT TISSUE NECK W CON INDICATIONS: left sided swelling TECHNIQUE: After the administration of intravenous contrast, 3.0 mm axial sections acquired from the sella to the aortic arch. Additional oblique axial 3.0 mm sections acquired through the pharynx. 3 mm thick coronal and sagittal reformats were generated. For radiation dose reduction, the following was used: automated exposure control. COMPARISON: None. FINDINGS: Image quality: Excellent. Lymph nodes: Prominent bilateral level 2 cervical chain nodes are present. Vessels: Visualized vasculature appears patent. Neck spaces: The oropharynx, nasopharynx, and pharynx demonstrate no mucosal lesions. The vocal cords, false vocal cords, pyriform sinuses, epiglottis, vallecula, and tongue base all appear normal. Extramucosal spaces appear unremarkable. Glands: The parotid and submandibular glands appear normal. Thyroid gland is unremarkable. Miscellaneous: Visualized brain and orbits appear normal. Lung apices appear clear. Mild facial edema. Bones: No suspicious bony lesions. Visualized sinuses and mastoids appear unremarkable. Extensive dental caries with associated periapical abscesses, resulting in bone loss of the left axilla. IMPRESSION: Extensive odontogenic disease, including many cavities, periapical abscesses and bone loss of the left maxilla. Odontogenic referral is recommended. Mild soft tissue edema and reactive lymph nodes are present. Dictated by: Taran Canchola M.D. on 08/11/2025 at 18:56 Approved by: Taran Canchola M.D. on 08/11/2025 at 18:59
[2025-08-11 17:29] LABS: Creatine Kinase 30 U/L (55-170); Lipase 350 U/L (23-300)
[2025-08-11 17:30] LABS: Alanine Aminotransferase 24 IU/L (<50); Albumin 3.8 g/dL (3.5-5.0); Albumin Globulin Ratio 1.2 (1.0-2.8); Alkaline Phosphatase 458 U/L (38-126); Blood Urea Nitrogen 16 mg/dL (9-20); Calcium 8.7 mg/dL (8.4-10.2); Carbon Dioxide 22 mmol/L (22-32); Chloride 102 mmol/L (98-107); Estimated Glomerular Filt Rate 52 mL/min (>60); Ethanol (ETOH) < 10 mg/dL (<10); Globulin 3.2 g/dL (1.7-4.1); Glucose 110 mg/dL (70-99); HEMOLYSIS < 15 (0-50); Potassium 4.6 mmol/L (3.4-5.1); Sodium 136 mmol/L (137-145); Total Protein 7.0 g/dL (6.3-8.2)
[2025-08-11 17:32] LABS: Lactate (Lactic Acid) 2.2 mmol/L (0.7-2.1)
[2025-08-11 17:41] LABS: Troponin I 0.015 ng/mL (0.01-0.034)
[2025-08-11 17:47] LABS: Procalcitonin 0.825 ng/mL (<0.5)
[2025-08-11] MEDS: diphenhydrAMINE 50 MG/ML VIAL 25 MG IV (18:01)
[2025-08-11] MEDS: AMPICILLIN/SULBACTAM 3 GM 3 GM in SODIUM CHLORIDE 0.9% 100 ML IV (18:01)
[2025-08-11] MEDS: methylPREDNISolone succ 125 MG/2 ML VIAL IV (18:04)
[2025-08-11 18:50] LABS: Reflexed Lactate in 2 Hours Y
--- NOTE | 2025-08-11 19:24 | EKG_ITS ---
[facility] [address] [place] [address] Test Date: 2025-08-11 Pat Name: Tonio Olivarez Department: [facility] Room: Gender: Male [place]: YUMIKO : 1975 Requested By: Order Number: [id number] Reading MD: Slade Torres Measurements Intervals [place] Rate: 118 P: [place]: QRS: -1 QRSD: 90 T: 158 QT: 314 QTc: 440 Interpretive Statements Atrial fibrillation with rapid ventricular response with premature ventricular or aberrantly conducted complexes Moderate voltage criteria for LVH, may be normal variant ( Sokolow-Rush , [place] product ) Nonspecific ST and T wave abnormality Electronically Signed On 08-12-2025 7:15:29 PST by Slade Torres
[2025-08-11 20:08] LABS: Lactate 2HR (Lactic Acid Rflx) 1.1 mmol/L (0.7-2.1)
[2025-08-11 20:33] LABS: Troponin I 0.016 ng/mL (0.01-0.034)
[2025-08-11 20:40] LABS: Thyroid Stimulating Hormone 8.33 uIU/mL (0.47-4.68)
[2025-08-11] MEDS: APIXABAN 5 MG TABLET PO (20:55)
[2025-08-11 21:09] LABS: NT-proBNP (BNP-Adult 18+) 21900 pg/mL (<125)
[2025-08-11] MEDS: AMIODARONE 150 MG/100 ML PIGGYBACK 600 MG IV (21:41)
[2025-08-12] VITALS (11 sets, daily range): BP systolic 109–152; BP diastolic 79–113; PULSE 45–96; RESP 15–18; TEMP 36.3–36.8; O2SAT 90–100; BMI 19.6
[2025-08-12] MEDS: NICOTINE 14 PATCH 14 MG TOP (01:33)
[2025-08-12] MEDS: AMPICILLIN/SULBACTAM 3 GM 3 GM in SODIUM CHLORIDE 0.9% 100 ML IV ×4 (01:34→20:42)
[2025-08-12 06:03] LABS: Add Manual Diff / Slide Review NO; Hematocrit 37.8 % (41-53); Hemoglobin 12.8 g/dL (13.5-17.5); Lymphocytes Absolute Auto 800 /uL (1100-4500); Mean Corpuscular HGB Conc 33.8 % (30-36); Mean Corpuscular Hemoglobin 35.2 PG (26-34); Mean Corpuscular Volume 104.2 fL (80-100); Platelet Count 189 X10^3/uL (150-400)
[2025-08-12 06:14] LABS: Blood Urea Nitrogen 16 mg/dL (9-20); Calcium 8.1 mg/dL (8.4-10.2); Carbon Dioxide 18 mmol/L (22-32); Chloride 104 mmol/L (98-107); Estimated Glomerular Filt Rate > 60 mL/min (>60); Glucose 154 mg/dL (70-99); HEMOLYSIS 18 (0-50); Potassium 4.7 mmol/L (3.4-5.1); Sodium 134 mmol/L (137-145)
--- NOTE | 2025-08-12 06:22 | DI.ECHO.S_ITS ---
[facility] : : [address] : : [place] : : [id number] : : Phone: [phone] Echocardiogram Report + + :Name: YANETH HARRELL Study Date: 08/12/2025 Height: 69 in : :Hospital ReadingLocation: Weight: 133 lb : : Gender: Male BSA: 1.7 m2 : :: 1975 Age: 49 yrs BP: 138/86 mmHg: :Reason For Study: ATRIAL FIBRILLATION : :Ordering Physician: PAMELA, : :MICHELLE Performed By: Sunil Munoz : :Referring: MICHELLE SANTIAGO : + + Interpretation Summary 1) Normal left ventricular thickness and size with severely reduced systolic function (EF 15-20%). 2) Normal right ventricular size and function. 3) No significant valvular abnormalities. 4) Compared to the Echo done 10/03/2024, no significant change. Procedure: A two-dimensional transthoracic echocardiogram with color flow and Doppler was performed. A contrast injection of Definity was performed to improve assessment for apical thrombus. The study quality was technically adequate. Comparison is made with the echocardiogram of 10/03/2024. The patient was in atrial fibrillation with heart rates between 81-119 bpm during the exam. Left Ventricle: The left ventricle is normal in size. There is normal left ventricular wall thickness. A false chord is noted (normal variant). There is no thrombus. There is no ventricular septal defect visualized. The ejection fraction is estimated to be 15-20%. There is severe global hypokinesis of the left ventricle. Diastolic function could not be accurately assessed due to atrial fibrillation. Right Ventricle: The right ventricle is normal in size and function. Atria: The left atrial size is normal. Right atrial size is normal. The interatrial septum is not well visualized. Mitral Valve: The mitral valve leaflets appear mildly thickened. There is mild mitral annular calcification. There is no mitral regurgitation noted. Aortic Valve: The aortic valve is trileaflet. The aortic valve opens well. There is no aortic valve stenosis. No aortic regurgitation is present. Tricuspid Valve: No tricuspid regurgitation. Pulmonary artery pressures cannot be estimated because of the lack of a measurable TR jet velocity. Pulmonic Valve: The pulmonic valve is not well seen, but is grossly normal. There is no pulmonic valvular regurgitation. Great Vessels: The aortic root is mildly dilated. The ascending aorta could not be visualized. The pulmonary artery is not well visualized, but is probably normal size. The inferior vena cava was not visualized. Pericardium/ Pleura There is no pericardial effusion. MMode/2D Measurements & Calculations LVIDd: 5.2 cm LVOT diam: 2.7 cm LVIDs: 4.8 cm Ao root diam: 3.8 cm FS: 8.3 % EPSS: 1.2 cm IVSd: 1.0 cm LVPWd: 0.92 cm LV loyd. diameter/BSA (cm/m^2): 3.0 LV sys. diameter/BSA (cm/m^2): 2.8 LA A2 area: 16.1 cm2 RA long axis: 5.4 cm LA A4 area: 13.8 cm2 RA area: 17.0 cm2 LA length (vol): 5.1 cm RA vol: 45.7 ml LA vol: 36.9 ml RA : 26.3 ml/m2 LA vol index: 21.2 ml/m2 RVD1 (basal): 3.3 cm RVD2 (mid): 2.6 cm TAPSE: 1.9 cm Doppler Measurements & Calculations Ao V2 max: 82.7 cm/sec LVOT Max Caleb: 82.0 cm/sec Ao V2 mean: 65.7 cm/sec LV V1 max P.7 mmHg Ao max P.7 mmHg LV V1 VTI: 12.4 cm Ao mean P.9 mmHg ETHAN(I,D): 5.1 cm2 Ao V2 VTI: 14.0 cm ETHAN(V,D): 5.8 cm2 sev ratio: 0.88 ETHAN indexed to BSA (cm^2/m^2): 3.0 MV E max caleb: 44.4 cm/sec PA V2 max: 91.8 cm/sec MV A max caleb: 13.4 cm/sec PA V2 mean: 69.7 cm/sec MV E/A: 3.3 PA mean P.1 mmHg Med Peak E' Caleb: 3.9 cm/sec PA pr(Accel): 51.6 mmHg E/E' med: 11.4 Lat Peak E' Caleb: 5.3 cm/sec E/E' lat: 8.4 E/e' average: 9.9 MV dec time: 0.14 sec SV(LVOT): 72.0 ml Reading Physician:11:31 AM
--- NOTE | 2025-08-12 06:23 | P.HP_ITS ---
History of Present Illness History of Present Illness Date Patient Seen: 08/11/25 Time Patient Seen: 21:55 Chief complaint: sent from [facility] for imaging Narrative: 49-year-old male with medical history of alcohol use, cirrhosis, congestive heart failure with EF reported 6% and CKD presents with dental pain. Per the patient's report, the patient started to have increased left-sided dental pain for the last 2 weeks. The patient states that he has some family in the left side of his abdominal that he has not been seen by the dentist recently. Patient states that in addition to pain it seems that his left side of his jaw is falling as well. Patient however denies any difficulty breathing or swallowing. The patient also states that she had hypertension in the past but denies any diagnosis of atrial fibrillation formally. The patient last alcohol intake was yesterday in which he said he only had 1 beer. In the emergency room, the patient hemodynamically stable but was in A-fib RVR. The patient also had CT scan of her neck and face which shows dental infection with cavities and Juma apical abscesses. There is some bone loss in the left maxilla as well. Overall the genetic referral was recommended. Labs shows WBC of 13 creatinine 1.6 previously 2.1 lactate 2.2 procalcitonin 0.8 bilirubin 3.3 AST 69 ALT 24 lipase [address] Barlow ER physician did consult the american studies professor Dr. Wilburn who recommend amiodarone 150 mg IV which over 10 minutes. Also ENT recommended to start you on Unasyn and to refer to local dentist in the morning for consultation for patient to be discharged. [facility] Medical History Skin disorder Social History household members: significant other Smoking Status: Current every day smoker alcohol intake: current Meds Home Medications and Allergies Home Medications ?Medication ?Instructions ?Recorded ?Confirmed ?Type No Known Home Medications 08/12/2507/26 History Allergies Allergy/AdvReac Type Severity Reaction Status Date / Time morphine Allergy Blister Verified 08/11/25 14:54 Review of Systems Review of Systems ROS: Yes All systems reviewed with the patient and are negative except as otherwise documented Exam Vital Signs (past 8 hours): - 08/11/25 22:30 08/11/25 22:30 08/11/25 23:00 Temperature Pulse Rate 86 Respiratory Rate 13 Blood Pressure 153/97 H 148/98 H Pulse Oximetry 99 Oxygen Delivery Method Oxygen Flow Rate 08/11/25 23:00 08/11/25 23:30 08/11/25 23:30 Temperature Pulse Rate 91 H 95 H Respiratory Rate 14 17 Blood Pressure 167/108 H Pulse Oximetry 99 99 Oxygen Delivery Method Room Air Oxygen Flow Rate 08/12/25 00:00 08/12/25 00:00 08/12/25 00:30 Temperature Pulse Rate 96 H Respiratory Rate Blood Pressure 145/104 H 152/113 H Pulse Oximetry 99 Oxygen Delivery Method Oxygen Flow Rate 08/12/25 00:30 08/12/25 01:00 08/12/25 01:01 Temperature Pulse Rate 94 H 92 H Respiratory Rate 17 Blood Pressure 145/92 H Pulse Oximetry 98 99 Oxygen Delivery Method Room Air Oxygen Flow Rate 08/12/25 01:01 08/12/25 01:20 08/12/25 04:00 Temperature 97.8 F 97.4 F L Pulse Rate 89 56 L 45 L Respiratory Rate 18 15 Blood Pressure 138/86 Pulse Oximetry 99 99 99 Oxygen Delivery Method Room Air Oxygen Flow Rate 0 0 Oxygen Delivery Method Room Air Oxygen Flow Rate 0 Narrative Exam Narrative: Physical Exam: GENERAL: The patient is not in any acute distressed. Awake and alert. HEENT: Nonicteric sclerae, PERRLA, EOMI. Oropharynx clear. Moist mucous membranes. Conjunctivae appear well perfused. HEART: tachy and irreg rhythm without murmurs. No lower extremities edema. LUNGS: Clear to auscultation bilaterally. No wheezing, crackles or rhonchi ABDOMEN: Soft, positive bowel sounds, nontender. SKIN: No rash, no excessive bruising, petechiae, or purpura. NEUROLOGIC: AxO x 3. Cranial nerves II-XII intact without motor/sensory deficit. Objective Labs 08/12/25 05:58 08/12/25 05:58 Labs: Laboratory Results - last 24 hr 08/11/25 08/11/25 08/11/25 17:01 19:50 20:02 WBC 13.0 H RBC 3.61 L Hgb 12.8 L Hct 38.0 L MCV 105.2 H MCH 35.5 H MCHC 33.7 RDW 13.5 Plt Count 247 Neut % (Auto) 85.0 H Lymph % (Auto) 8.7 L [place] % (Auto) 4.8 Eos % (Auto) 1.0 L Baso % (Auto) 0.5 Neut # (Auto) 74467 H Lymph # (Auto) 1100 [place] # (Auto) 600 Eos # (Auto) 100 Baso # (Auto) 100 Sodium 136 L Potassium 4.6 Chloride 102 Carbon Dioxide 22 BUN 16 Creatinine 1.62 H Estimated GFR 52 L BUN/Creatinine Ratio 9.9 Glucose 110 H Lactate 2.2 H 1.1 Calcium 8.7 Total Bilirubin 3.3 H AST 69 H ALT 24 Alkaline Phosphatase 458 H Total Creatine Kinase 30 L Troponin I 0.015 0.016 NT-Pro-B Natriuret Pep 63653 H Total Protein 7.0 Albumin 3.8 Globulin 3.2 Albumin/Globulin Ratio 1.2 Lipase 350 H Procalcitonin 0.825 H TSH 8.33 H Ethyl Alcohol < 10 08/12/25 05:58 WBC 11.4 H RBC 3.63 L Hgb 12.8 L Hct 37.8 L MCV 104.2 H MCH 35.2 H MCHC 33.8 RDW 13.6 Plt Count 189 Neut % (Auto) 92.3 H Lymph % (Auto) 6.7 L [place] % (Auto) 0.7 L Eos % (Auto) 0.1 L Baso % (Auto) 0.2 Neut # (Auto) 00785 H Lymph # (Auto) 800 L [place] # (Auto) 100 Eos # (Auto) 0 Baso # (Auto) 0 Sodium 134 L Potassium 4.7 Chloride 104 Carbon Dioxide 18 L BUN 16 Creatinine 1.35 H Estimated GFR > 60 BUN/Creatinine Ratio 11.9 Glucose 154 H Lactate Calcium 8.1 L Total Bilirubin AST ALT Alkaline Phosphatase Total Creatine Kinase Troponin I NT-Pro-B Natriuret Pep Total Protein Albumin Globulin Albumin/Globulin Ratio Lipase Procalcitonin TSH Ethyl Alcohol Assessment & Plan Assessment & Plan narrative: Left-sided dental infection with periapical abscess. Admit patient to medical telemetry as inpatient. Continue IV Unasyn monitor for sepsis. Need referal to dentist post discharge. A-fib with RVR. Patient rate did improve with amiodarone 150 mg IV. Will continue to monitor heart rate. Metoprolol IV prn. Continue apixaban Possible sepsis with leukocytosis and elevated lactic acid 2.2. Treat with IV fluid and IV antibiotic as above. IVF and trend lactic acid to normal. Medical noncompliance. Note the patient is not taking any medication. DVT prophylaxis Eliquis. Code Status DNR/DNI per the patient's request Disposition Home in 2 days - As the provider of this telehealth evaluation, requested by the patient's evaluating physician, I attest that I introduced myself to the patient, provided my credentials and determined that telemedicine via a real-time, 2 way interactive audio and video platform is an appropriate and effective means of providing this service. - I reviewed the patient's chart and had a discussion with the member of the patient's treatment team. - The patient and I mutually agreed with continuation of this evaluation via telemedicine. The patient consented for the telemedicine evaluation. - This virtual encounter was taken place from [place] by Dr. Gerson Farias. The patient was evaluated at [facility]. The encounter was approximately 35 minutes. The nurse was present during the entire time of the encounter and was able assists with the stethoscope to listen to the patients. Time-Based Coding :: [TOTAL MINUTES] spent with patient and on the chart (including review of chart, obtaining history, exam, reviewing outside data, placing orders, documenting exam and treatment plan, and counseling patient) on [DATE]. Quality VTE Deep Vein Thrombosis/Pulmonary Embolism Present on Admission: No
[2025-08-12] MEDS: METOPROLOL IR 25 MG TABLET PO ×2 (08:51→20:42)
--- NOTE | 2025-08-12 12:25 | P.PN_ITS ---
<Statement entered by Ириан Kruger MD - 08/12/25 13:54> Opened in error
--- NOTE | 2025-08-12 12:26 | P.HP_ITS ---
History of Present Illness History of Present Illness Date Patient Seen: 08/12/25 Time Patient Seen: 12:27 Chief complaint: sent from [facility] for imaging Narrative: HPI 49-year-old male with history of alcohol abuse, tobacco use, cirrhosis, congestive heart failure/cardiomyopathy (EF 15-20%), who presented to the walk- in clinic with left lower jaw dental pain that had been present for at least 2 weeks. He has not been seen by a dentist because he did not have insurance until 2 days ago. He was sent from the walk-in clinic to the ER for imaging but add evaluation in the ER was found to be in atrial fibrillation with rapid ventricular rate. The patient notes that he can often feel his heart beating quickly but states this has been present since he was 10 years old. He reports that when he was a child he wore a Holter monitor for a period of a week. He has a memory of being told something was wrong with his heart but does not know any of the details. He does also note an evaluation at [facility] approximately 3 years ago when he was admitted due to a vascular issue in his neck. The patient is not clear on exactly what the problem was at that time. He denies chest pain, lightheadedness or dizziness, nausea or vomiting. Of note, the patient consumes 40 oz of malt liquor daily. He vapes the equivalent of 1 pack per day. He notes prior history of alcohol withdrawal that included alcohol withdrawal seizures. When asked about current withdrawal symptoms, the patient reported that he felt quite tremulous but was not experiencing other withdrawal concerns. In the emergency room, labs were notable for WBC 13, creatinine 1.6 (previously 2.1), lactate 2.2, procalcitonin 0.8, total bili 3.3, AST 69, ALT 24, alkaline phosphatase 458, BNP 21,900. Alcohol level less than 10. Soft tissue neck shows extensive odontogenic disease including many cavities, periapical abscesses and bone loss of the left maxilla. There is mild edema and reactive lymph nodes. Physical exam Afebrile, 130/85, heart rate 68 (was 120-160 earlier today prior to receiving Ativan for withdrawal), 16, 90% on room air Alert and oriented, thin, no acute distress Poor dentition, multiple broken teeth, tender to palpation along gums and jaw in the region of the to back molars, palpable submandibular lymphadenopathy Irregular rhythm, initially tachycardic now normal rate, no murmurs Clear to auscultation bilaterally Soft, nontender, nondistended, positive bowel sounds Warm without edema Skin very dry Neuro grossly nonfocal Pleasant and cooperative Labs: WBC 11.4, creatinine 1.35, glucose 154, Imaging: No new imaging since admission Diet: General Tubes and lines: Peripheral IV Code status: DNR Discharge planning: Anticipate discharge to home tomorrow with heart rate well controlled and no significant withdrawal symptoms. Will need urgent fall follow-up with dental. Assessment and plan AFib with RVR Cardiomyopathy Chronic systolic CHF Patient is now rate controlled. He has a known cardiomyopathy and does not appear to be on appropriate therapy for his low ejection fraction. * Start metoprolol 25 mg b.i.d. * Start low-dose lisinopril * Have advised cessation of alcohol as this is the likely cause of cardiomyopathy * Obtain records from admission several years ago at [facility] to determine details of cardiac history * Consider cardiology consult once records from [facility] are available for review * No evidence of volume overload so diuretics not indicated at this time Periodontal abscesses Dental caries Left maxillary loss * Continue Unasyn * Outpatient dental evaluation Alcohol abuse Alcohol withdrawal Patient with long history of alcohol abuse, history of withdrawal and withdrawal seizures, reports that he consumes 40 oz of malt liquor daily. * Initiate CIWA protocol * Ativan 1 mg IV now for tremors * Multivitamin daily * Folate 1 mg daily * Encourage alcohol cessation due to cardiomyopathy and liver disease * Recheck CMP in the morning Tobacco use Patient vapes the equivalent of 1 pack per day * Continue nicotine patch Time spent: 75 minutes spent in chart review, patient evaluation and management, coordination of care, and documentation. [facility] Medical History Skin disorder Social History household members: significant other Smoking Status: Current every day smoker alcohol intake: current Meds Home Medications and Allergies Home Medications ?Medication ?Instructions ?Recorded ?Confirmed ?Type No Known Home Medications 08/12/2507/26 History Allergies Allergy/AdvReac Type Severity Reaction Status Date / Time morphine Allergy Blister Verified 08/11/25 14:54 Exam Vital Signs (past 8 hours): - 08/12/25 08:10 08/12/25 10:21 Temperature 98.2 F 98.3 F Pulse Rate 72 68 Respiratory Rate 18 16 Blood Pressure 147/88 H 130/85 Pulse Oximetry 99 90 L Oxygen Delivery Method Room Air Oxygen Flow Rate 0 Objective Labs 08/12/25 05:58 08/12/25 05:58 Labs: Laboratory Results - last 24 hr 08/11/25 08/11/25 08/11/25 17:01 19:50 20:02 WBC 13.0 H RBC 3.61 L Hgb 12.8 L Hct 38.0 L MCV 105.2 H MCH 35.5 H MCHC 33.7 RDW 13.5 Plt Count 247 Neut % (Auto) 85.0 H Lymph % (Auto) 8.7 L [place] % (Auto) 4.8 Eos % (Auto) 1.0 L Baso % (Auto) 0.5 Neut # (Auto) 38393 H Lymph # (Auto) 1100 [place] # (Auto) 600 Eos # (Auto) 100 Baso # (Auto) 100 Sodium 136 L Potassium 4.6 Chloride 102 Carbon Dioxide 22 BUN 16 Creatinine 1.62 H Estimated GFR 52 L BUN/Creatinine Ratio 9.9 Glucose 110 H Lactate 2.2 H 1.1 Calcium 8.7 Total Bilirubin 3.3 H AST 69 H ALT 24 Alkaline Phosphatase 458 H Total Creatine Kinase 30 L Troponin I 0.015 0.016 NT-Pro-B Natriuret Pep 12408 H Total Protein 7.0 Albumin 3.8 Globulin 3.2 Albumin/Globulin Ratio 1.2 Lipase 350 H Procalcitonin 0.825 H TSH 8.33 H Ethyl Alcohol < 10 08/12/25 05:58 WBC 11.4 H RBC 3.63 L Hgb 12.8 L Hct 37.8 L MCV 104.2 H MCH 35.2 H MCHC 33.8 RDW 13.6 Plt Count 189 Neut % (Auto) 92.3 H Lymph % (Auto) 6.7 L [place] % (Auto) 0.7 L Eos % (Auto) 0.1 L Baso % (Auto) 0.2 Neut # (Auto) 78014 H Lymph # (Auto) 800 L [place] # (Auto) 100 Eos # (Auto) 0 Baso # (Auto) 0 Sodium 134 L Potassium 4.7 Chloride 104 Carbon Dioxide 18 L BUN 16 Creatinine 1.35 H Estimated GFR > 60 BUN/Creatinine Ratio 11.9 Glucose 154 H Lactate Calcium 8.1 L Total Bilirubin AST ALT Alkaline Phosphatase Total Creatine Kinase Troponin I NT-Pro-B Natriuret Pep Total Protein Albumin Globulin Albumin/Globulin Ratio Lipase Procalcitonin TSH Ethyl Alcohol Assessment & Plan Time-Based Coding :: [TOTAL MINUTES] spent with patient and on the chart (including review of chart, obtaining history, exam, reviewing outside data, placing orders, documenting exam and treatment plan, and counseling patient) on [DATE]. Quality VTE Deep Vein Thrombosis/Pulmonary Embolism Present on Admission: No
[2025-08-12] MEDS: FOLIC ACID 1 MG TABLET PO (13:49)
--- NOTE | 2025-08-12 14:20 | PC.NURSE ---
Pt denies any discomfort Tele showing Afib/RVR w/rapid rate Med w/ ativan x 1 w/ good results. SL intact/patent. Call light w/in reach, pt calls appropriately for needs. Continue w/plan of care
[2025-08-12] MEDS: APIXABAN 5 MG TABLET PO (20:42)
[2025-08-13 01:00] VITALS: BP 124/88; PULSE 75; RESP 17; TEMP 36.7; O2SAT 98
[2025-08-13] MEDS: AMPICILLIN/SULBACTAM 3 GM 3 GM in SODIUM CHLORIDE 0.9% 100 ML IV ×2 (03:37→09:31)
[2025-08-13 05:33] LABS: Add Manual Diff / Slide Review NO; Hematocrit 34.4 % (41-53); Hemoglobin 11.8 g/dL (13.5-17.5); Lymphocytes Absolute Auto 1300 /uL (1100-4500); Mean Corpuscular HGB Conc 34.4 % (30-36); Mean Corpuscular Hemoglobin 35.8 PG (26-34); Mean Corpuscular Volume 104.2 fL (80-100); Platelet Count 184 X10^3/uL (150-400)
[2025-08-13 05:56] LABS: Alanine Aminotransferase 20 IU/L (<50); Albumin 3.2 g/dL (3.5-5.0); Albumin Globulin Ratio 1.1 (1.0-2.8); Alkaline Phosphatase 354 U/L (38-126); Blood Urea Nitrogen 23 mg/dL (9-20); Calcium 8.3 mg/dL (8.4-10.2); Carbon Dioxide 23 mmol/L (22-32); Chloride 103 mmol/L (98-107); Estimated Glomerular Filt Rate > 60 mL/min (>60); Globulin 3.0 g/dL (1.7-4.1); Glucose 98 mg/dL (70-99); HEMOLYSIS < 15 (0-50); Potassium 4.0 mmol/L (3.4-5.1); Sodium 136 mmol/L (137-145); Total Protein 6.2 g/dL (6.3-8.2)
[2025-08-13 05:57] LABS: Magnesium 1.8 mg/dL (1.6-2.3)
[2025-08-13 06:30] VITALS: BP 138/91; PULSE 80; RESP 16; TEMP 36.5; O2SAT 95
--- NOTE | 2025-08-13 08:31 | CM.DANOTE ---
Late Entry: Visit Done 08/12/25 Initial DCP Assessment Visit Note Reviewed EMR and team rounds for pt's medical status and updates. Met with pt and his SO at bedside to introduce self and role, pt was found to be alert, oriented, in good spirits. Pt lives independently with his SO in their own home here in [place]. His SO will also transport him home once he's medically stable for home d/c. No CM d/c or assistance needs are identified at this time. Payor: [employer] No PCP identiifed Pt is a 49 year-old M with a hx of ETOH abuse, cirrhosis, CHF, and CKD with c/o worsening dental pain for the last 2-weeks. While being evaluated in the ED, he was found to be in Afib with RVR. His labs also indicated sepsis, so he was given a dose of IV antibiotics while still in the ED. Plan was made to admit to OBS for heart rate control and symptom management. DCP will continue to monitor for any further evolving needs prior to his departure. Discharge Planning/Care Management CM Discharge Assessment Start: 08/12/25 01:08 Freq: Status: Active Protocol: Document 08/13/25 08:29 DPL (Rec: 08/13/25 08:30 DPL [id number]) Discharge Planning Assessment Assigned Discharge DHAVAL Vna[employer] Insurance [employer] Advance Directives? No History Provided By Patient,Significant Other,Medical Record Has Patient been No admitted in last 30 days? Prior Living House Arrangements Household Members significant other Type of Drives own vehicle transporation used prior to admit Independent with ADL Yes 's Is patient alert and Yes oriented? Caregiver for No Another Discharge Plan Home Referrals Initiated None needed Review Status In Process Please Provide Date 08/12/25 Initial DC Assessment Was Performed
[2025-08-13 08:47] VITALS: BP 121/96; PULSE 84; RESP 14; TEMP 36.2; O2SAT 100
[2025-08-13] MEDS: APIXABAN 5 MG TABLET PO (09:31)
[2025-08-13] MEDS: MULTIVITAMIN 1 TABLET 1 TAB PO (09:31)
[2025-08-13] MEDS: FOLIC ACID 1 MG TABLET PO (09:31)
[2025-08-13] MEDS: METOPROLOL IR 25 MG TABLET PO (09:31)
--- NOTE | 2025-08-13 12:30 | PC.NURSE ---
Day shift: Paperwork signed and all questions answered. S.O. in room for teachings. Pt with no complaints or concerns at discharge. Left unit via WC at approx 1210. Taken by this curriculum writer. Pt's S.O. is driving him home. NEw MD scripts are at Pt's pharmcay. Encouraged to take all medications as directed and to get in to see a dentist ALAN.
--- NOTE | 2025-08-13 13:12 | P.DS_ITS ---
History of Present Illness History of Present Illness Date Patient Seen: 08/13/25 Time Patient Seen: 08:18 Chief complaint: sent from [facility] for imaging Narrative: 49-year-old male with history of alcohol abuse, tobacco use, cirrhosis, congestive heart failure/cardiomyopathy (EF 15-20%), who presented to the walk- in clinic with left lower jaw dental pain that had been present for at least 2 weeks. He has not been seen by a dentist because he did not have insurance until 2 days ago. He was sent from the walk-in clinic to the ER for imaging but add evaluation in the ER was found to be in atrial fibrillation with rapid ventricular rate. The patient notes that he can often feel his heart beating quickly but states this has been present since he was 10 years old. He reports that when he was a child he wore a Holter monitor for a period of a week. He has a memory of being told something was wrong with his heart but does not know any of the details. He does also note an evaluation at [facility] approximately 3 years ago when he was admitted due to a vascular issue in his neck. The patient is not clear on exactly what the problem was at that time. He denies chest pain, lightheadedness or dizziness, nausea or vomiting. Of note, the patient consumes 40 oz of malt liquor daily. He vapes the equivalent of 1 pack per day. He notes prior history of alcohol withdrawal that included alcohol withdrawal seizures. When asked about current withdrawal symptoms, the patient reported that he felt quite tremulous but was not experiencing other withdrawal concerns. In the emergency room, labs were notable for WBC 13, creatinine 1.6 (previously 2.1), lactate 2.2, procalcitonin 0.8, total bili 3.3, AST 69, ALT 24, alkaline phosphatase 458, BNP 21,900. Alcohol level less than 10. Soft tissue neck shows extensive odontogenic disease including many cavities, periapical abscesses and bone loss of the left maxilla. There is mild edema and reactive lymph nodes. Discharge Providers Provider Date of admission: 08/11/25 22:04 Discharge Date: 08/13/25 Primary care physician: Doctor Lee MD Consults: 08/12/25 02:14 Consult to Pharmacy Routine Comment: as needed Discharge provider: Sonu Keith MD Summary Hospital Course Discharge Diagnosis: AFib with RVR Cardiomyopathy Chronic systolic CHF Periodontal abscesses Dental caries Left maxillary loss Alcohol abuse Alcohol withdrawal Tobacco use Hospital Course: AFib with RVR Cardiomyopathy Chronic systolic CHF Patient is now rate controlled. He has a known cardiomyopathy and does not appear to be on appropriate therapy for his low ejection fraction. * Start metoprolol 25 mg b.i.d. * Start low-dose lisinopril * Start Eliquis DOAC therapy given CHADS2-VASC score = 2 (CHF/HTN, 2.9% annualized stroke risk) * Have advised cessation of alcohol as this is the likely cause of cardiomyopathy * Obtain records from admission several years ago at [facility] to determine details of cardiac history * Consider cardiology consult once records from [facility] are available for review * No evidence of volume overload so diuretics not indicated at this time Periodontal abscesses Dental caries Left maxillary loss * Continue Unasyn, switched to Augmentin at discharge with hydrocodone #10 pills * Outpatient dental evaluation Alcohol abuse Alcohol withdrawal Patient with long history of alcohol abuse, history of withdrawal and withdrawal seizures, reports that he consumes 40 oz of malt liquor daily. * Initiate CIWA protocol * Ativan 1 mg IV now for tremors * Multivitamin daily * Folate 1 mg daily * Encourage alcohol cessation due to cardiomyopathy and liver disease * Recheck CMP normal * No evidence of withdrawal Tobacco use Patient vapes the equivalent of 1 pack per day * Continue nicotine patch * Cessation advised Status at Discharge Cognitive/behavioral status at discharge: oriented Functional status at discharge: independent ambulation Overall status at discharge: patient is back to baseline Time Spent with Patient Time spent: Greater than 30 minutes Exam Vital Signs (past 8 hours): - 08/13/25 06:30 08/13/25 08:47 Temperature 97.7 F 97.2 F L Pulse Rate 80 84 Respiratory Rate 16 14 Blood Pressure 138/91 H 121/96 H Pulse Oximetry 95 100 Oxygen Flow Rate 0 0 Oxygen Delivery Method Room Air Oxygen Flow Rate 0 Narrative Exam Narrative: Alert and oriented, thin, no acute distress Poor dentition, multiple broken teeth, tender to palpation along gums and jaw in the region of the to back molars, palpable submandibular lymphadenopathy Irregular rhythm, initially tachycardic now normal rate, no murmurs Clear to auscultation bilaterally Soft, nontender, nondistended, positive bowel sounds Warm without edema Skin very dry Neuro grossly nonfocal Pleasant and cooperative Objective Imaging Soft tissue neck CT: Radiologist's impression: Extensive odontogenic disease, including many cavities, periapical abscesses and bone loss of the left maxilla. Odontogenic referral is recommended. Mild soft tissue edema and reactive lymph nodes are present. Labs 08/13/25 04:35 08/13/25 04:35 Labs: Laboratory Results - last 24 hr 08/13/25 04:35 WBC 13.5 H RBC 3.30 L Hgb 11.8 L Hct 34.4 L MCV 104.2 H MCH 35.8 H MCHC 34.4 RDW 13.6 Plt Count 184 Neut % (Auto) 84.2 H Lymph % (Auto) 9.6 L [place] % (Auto) 5.9 Eos % (Auto) 0.2 L Baso % (Auto) 0.1 Neut # (Auto) 49910 H Lymph # (Auto) 1300 [place] # (Auto) 800 Eos # (Auto) 0 Baso # (Auto) 0 Sodium 136 L Potassium 4.0 Chloride 103 Carbon Dioxide 23 BUN 23 H Creatinine 1.44 H Estimated GFR > 60 BUN/Creatinine Ratio 16.0 Glucose 98 Calcium 8.3 L Magnesium 1.8 Total Bilirubin 2.5 H AST 47 ALT 20 Alkaline Phosphatase 354 H Total Protein 6.2 L Albumin 3.2 L Globulin 3.0 Albumin/Globulin Ratio 1.1 PFSH Medical History Skin disorder Social History household members: significant other Smoking Status: Current every day smoker alcohol intake: current Discharge Plan Discharge Plan Patient Disposition: Home Provider Discharge Comment: Followup with PCP this week, followup with dentist in the next week; you are on a blood thinner to prevent blood clots and should avoid aspirin and anti-inflammatory medications - you may Tylenol [id number] if needed for pain; a supply of hydrocodone is provided for dental pain until you can be seen. You will need followup with a alarm signal operator given your heart condition. Discharge orders & Medications Prescriptions: New hydrocodone-acetaminophen 5-325 mg Tablet 1 tab PO Q4H PRN (Reason: Pain, Moderate (4-6)) Qty: 10 0RF metoprolol tartrate 25 mg Tablet 25 mg PO BID Qty: 60 0RF lisinopril 5 mg tablet 5 mg PO DAILY Qty: 30 0RF amoxicillin-pot clavulanate 875-125 mg tablet 1 tab PO BID Qty: 14 0RF Eliquis 5 mg Tablet 5 mg PO BID Qty: 60 0RF Follow up/Referrals: Doctor Howard MD [Primary Care Provider, Medical] Diet/Activity/Treatments Diet: Regular Visit Report/Discharge Packet Instructions: Heart Failure, Atrial Fibrillation, DI for Heart Failure, DI for Atrial Fibrillation, DI for Dental Pain Stand Alone Forms: Congestive Heart Failure, Patient Portal/API, Stroke Signs & Symptoms, Pneumococcal Vaccine Info Discharge Data Primary Care Provider: Doctor Lee Attending Provider: Gerson Farias Admit Date/Time: 08/11/25 22:04 Quality VTE Deep Vein Thrombosis/Pulmonary Embolism Present on Admission: No MIPS - Admit I confirm the patient?s Advance Care Plan is present, Code status is documented, Surrogate decision maker is in patient?s record [If Yes, STOP here]: Yes MIPS - Meds 'Current medications' to include all prescriptions, djzj-whu-smffojx products, herbals, cannabis/cannabidiol products, and vitamin/mineral/dietary (nutritional) supplements. I have utilized all available resources to obtain, update, or review the patient?s current medications. [If Yes, STOP here]: Yes MIPS - DC The patient has a history of heart transplant or Left Ventricular Assist Device (LVAD). If yes, STOP here.: No The patient has current or prior documentation of left ventricular ejection fraction (LVEF) less than or equal to 40%, or moderate or severely depressed left ventricular systolic function.: No A. The patient was prescribed or already taking an Angiotensin-Converting Enzyme (FAM) Inhibitor, or Angiotensin Receptor Aviva (ARB).: Yes B. The patient was prescribed or already taking a beta-aviva. [If Yes to Both A & B, STOP here]: Yes Patient not prescribed/taking FAM or ARB, no reason given.: No Patient not prescribed/taking beta-aviva, no reason given.: No IH PROFEE Charge Codes Discharge inpatient/observation: [id number] Lab Results Common Lab Results- Last: 2 WBC, (4.5-11.0) 13.5 X10^3/uL H Today RBC, (4.5-5.9) 3.30 X10^6/uL L Today Hgb, (13.5-17.5) 11.8 g/dL L Today Hct, (41-53) 34.4 % L Today MCV, (80-100) 104.2 fL H Today MCH, (26-34) 35.8 PG H Today MCHC, (30-36) 34.4 % Today RDW, (11.6-14.8) 13.6 % Today Plt Count, (150-400) 184 X10^3/uL Today Neut % (Auto), (50-75) 84.2 % H Today Lymph % (Auto), (25-40) 9.6 % L Today Charlotte % (Auto), (3-14) 5.9 % Today Eos % (Auto), (2-4) 0.2 % L Today Baso % (Auto), (0-2) 0.1 % Today Neut # (Auto), (5889-4318) 62853 /uL H Today Sodium, (137-145) 136 mmol/L L Today Potassium, (3.4-5.1) 4.0 mmol/L Today Chloride, (98-107) 103 mmol/L Today Carbon Dioxide, (22-32) 23 mmol/L Today BUN, (9-20) 23 mg/dL H Today Creatinine, (0.66-1.25) 1.44 mg/dL H Today Estimated GFR, (>60) > 60 mL/min Today BUN/Creatinine Ratio, (6-22) 16.0 Today Glucose, (70-99) 98 mg/dL Today Calcium, (8.4-10.2) 8.3 mg/dL L Today Total Bilirubin, (0.2-1.3) 2.5 mg/dL H Today AST, (17-59) 47 IU/L Today ALT, (<50) 20 IU/L Today Alkaline Phosphatase, (38-126) 354 U/L H Today Total Protein, (6.3-8.2) 6.2 g/dL L Today Albumin, (3.5-5.0) 3.2 g/dL L Today Globulin, (1.7-4.1) 3.0 g/dL Today Albumin/Globulin Ratio, (1.0-2.8) 1.1 Today TSH, (0.47-4.68) 8.33 uIU/mL H 08/11/25 ALT, (<50) 20 IU/L Today AST, (17-59) 47 IU/L Today BUN, (9-20) 23 mg/dL H Today Creatinine, (0.66-1.25) 1.44 mg/dL H Today Estimated GFR, (>60) > 60 mL/min Today BUN/Creatinine Ratio, (6-22) 16.0 Today Hgb, (13.5-17.5) 11.8 g/dL L Today RBC, (4.5-5.9) 3.30 X10^6/uL L Today Hct, (41-53) 34.4 % L Today Hepatitis C Antibody, (0.0-0.9) <0.1 s/co ratio 08/08/21 Lipase, (23-300) 350 U/L H 08/11/25 Plt Count, (150-400) 184 X10^3/uL Today PT, (10.1-12.7) 13.3 SECONDS H 02/26/23 INR, (0.9-1.3) 1.2 02/26/23
== END 2025-08-13 12:10 | disposition home or self-care (01) ==
LOC: ED 21:55 → AC 22:05
PROVIDERS: Emergency Medicine; Internal Medicine Infectious Disease; Admitting Provider Internal Medicine; Emergency Provider Family Medicine; Referring Provider Family Medicine; Visit Provider Internal Medicine
DX: K02.9 Dental caries, unspecified (principal); K04.7 Periapical abscess without sinus; I48.91 Unspecified atrial fibrillation; N18.9 Chronic kidney disease, unspecified; I50.9 Heart failure, unspecified; F10.20 Alcohol dependence, uncomplicated; Y90.0 Blood alcohol level of less than 20 mg/100 ml; K74.60 Unspecified cirrhosis of liver; I42.9 Cardiomyopathy, unspecified; Z72.0 Tobacco use; Z66 Do not resuscitate
CPT/HCPCS: 36415; 70491; 80048; 80053; 80320; 82550; 83605; 83690; 83735; 83880; 84145; 84443; 84484; 85025; 87040; 93005; 96365; 96366; 96375; 99284; 99291; G0378; C8929; J0282; J0295; J1200; J2060; J2919; J7030; J7050; Q9957; Q9967